=== PATIENT | male | born 1955 | race African-American/Black ===

== ENCOUNTER 2017-11-17 09:45 | Emergency (ER) | payer OTHER, MEDICARE ==
--- NOTE | 2017-11-17 10:01 | ER Document Report ---
ED Medical Screen (RME) - General Chief Complaint: Abnormal Lab Results Stated Complaint: HIP PAIN Time Seen by Provider: 11/17/17 09:55 Mode of Arrival: Ambulatory Information source: Patient Notes: 62-year-old male presents with concerns of low blood count, patient was called by his primary care physician to come in for a red blood cell count of 3.6. pt notes he has not felt well for 1.5 years since his hip replacement. Pt has nosebleeds once a week, denies any aspirin or blood thinner use I have greeted and performed a rapid initial assessment of this patient. A comprehensive ED assessment and evaluation of the patient, analysis of test results and completion of the medical decision making process will be conducted by additional ED providers. PHYSICAL EXAMINATION: GENERAL: Well-appearing, well-nourished and in no acute distress. HEAD: Atraumatic, normocephalic. EYES: Pupils equal round extraocular movements intact, conjunctiva are normal. ENT: Nares patent NECK: Normal range of motion LUNGS: No respiratory distress Musculoskeletal: Normal range of motion NEUROLOGICAL: Normal speech, normal gait. PSYCH: Normal mood, normal affect. SKIN: Warm, Dry, normal turgor, no rashes or lesions noted. TRAVEL OUTSIDE OF THE [place] IN LAST 30 DAYS: No - Related Data Allergies/Adverse Reactions: Penicillins Allergy (Verified 11/17/17 09:49) Past Medical History - Past Medical History Cardiac Medical History: Reports: Hx Hypertension Renal/ Medical History: Denies: Hx Peritoneal Dialysis Psychiatric Medical History: Reports: Hx Depression Past Surgical History: Reports: Hx Orthopedic Surgery Physical Exam - Vital signs Vitals: Temp Pulse Resp BP Pulse Ox 98 F 96 17 125/63 99 11/17/17 09:53 11/17/17 09:53 11/17/17 09:53 11/17/17 09:53 11/17/17 09:53 Course - Vital Signs Vital signs: Temp Pulse Resp BP Pulse Ox 98 F 96 17 125/63 99 11/17/17 09:53 11/17/17 09:53 11/17/17 09:53 11/17/17 09:53 11/17/17 09:53
[2017-11-17 10:30] LABS: ABSOLUTE BASOPHILS # (AUTO) 0.1 10^3/uL (0.0-0.2); ABSOLUTE EOSINOPHILS # (AUTO) 0.1 10^3/uL (0.0-0.6); ABSOLUTE LYMPHOCYTES (AUTO) 1.6 10^3/uL (0.5-4.7); ABSOLUTE MONOCYTES (AUTO) 0.7 10^3/uL (0.1-1.4); ABSOLUTE NEUT (AUTO) 4.6 10^3/uL (1.7-8.2); BASOPHILS % (AUTO) 1.5 % (0-2); EOSINOPHILS % (AUTO) 1.8 % (0-6); HEMATOCRIT 24.5 % (37.9-51.0); MEAN CORPUSCULAR HEMOGLOBIN 16.8 pg (27.0-33.4); MEAN CORPUSCULAR HGB CONC 27.2 g/dL (32.0-36.0); MONOCYTES % (AUTO) 10.2 % (3-13); PLATELET COUNT 602 10^3/uL (150-450); RED BLOOD COUNT 3.99 10^6/uL (4.35-5.55); RED CELL DISTRIBUTION WIDTH 22.7 % (11.5-14.0); SEGMENTED NEUTROPHILS % (AUTO) 64.5 % (42-78); TOTAL CELLS COUNTED % (AUTO) 100 %; WHITE BLOOD COUNT 7.1 10^3/uL (4.0-10.5)
[2017-11-17 10:42] LABS: ALANINE AMINOTRANSFERASE 19 U/L (21-72); ALBUMIN 4.2 g/dL (3.5-5.0); ALKALINE PHOSPHATASE 76 U/L (38-126); ANION GAP 12 (5-19); ASPARTATE AMINO TRANSFERASE 21 U/L (17-59); BILIRUBIN,DIRECT 0.1 mg/dL (0.0-0.4); BILIRUBIN,TOTAL 0.4 mg/dL (0.2-1.3); BLOOD UREA NITROGEN 11 mg/dL (7-20); CALCIUM 9.9 mg/dL (8.4-10.2); CARBON DIOXIDE 25 mmol/L (22-30); CHLORIDE 104 mmol/L (98-107); GLUCOSE 88 mg/dL (75-110); POTASSIUM 4.4 mmol/L (3.6-5.0); SODIUM 141.2 mmol/L (137-145); TOTAL PROTEIN 7.4 g/dL (6.3-8.2)
[2017-11-17 10:44] LABS: MEAN CORPUSCULAR VOLUME 62 fl (80-97)
[2017-11-17 11:03] LABS: HEMOGLOBIN 6.7 g/dL (13.5-17.0)
[2017-11-17 11:08] LABS: ANISOCYTOSIS 2+; HYPOCHROMASIA 3+; OVALOCYTES 1+; PLATELET COMMENT INCREASED; POIKILOCYTOSIS 1+; POLYCHROMASIA SLIGHT; TARGET CELLS SLIGHT; TEAR DROP CELLS 1+
[2017-11-17] MEDS ORDERED: NORMAL SALINE 250 ML IV PRN (11:22)
[2017-11-17] MEDS ORDERED: ALBUTEROL SULFATE 0.083% NEB 2.5 MG/3 ML AMPUL NEB ONE (11:22)
--- NOTE | 2017-11-17 12:35 | RADIOLOGY REPORT (SQ) ---
EXAM DESCRIPTION: CHEST PA/LAT COMPLETED DATE/TIME: 11/17/2017 12:21 pm REASON FOR STUDY: cough, asthma COMPARISON: None. EXAM PARAMETERS: NUMBER OF VIEWS: two views TECHNIQUE: Digital Frontal and Lateral radiographic views of the chest acquired. RADIATION DOSE: NA LIMITATIONS: none FINDINGS: LUNGS AND PLEURA: Focal bandlike airspace disease in the lingula, scarring versus atelecta sis versus pneumonia. Remainder of the lungs are well inflated and clear. No pleural effusion. No pneumothorax. MEDIASTINUM AND HILAR STRUCTURES: No masses or contour abnormalities. HEART AND VASCULAR STRUCTURES: Heart normal size. No evidence for failure. BONES: No acute findings. HARDWARE: None in the chest. OTHER: No other significant finding. IMPRESSION: Bandlike airspace disease in the lingula, atelectasis versus pneumonia versus scarring. TECHNICAL DOCUMENTATION: JOB ID: [id number] [employer]- All Rights Reserved
[2017-11-17] MEDS ORDERED: AZITHROMYCIN 250 MG TABLET PO ONE (13:12)
[2017-11-17] MEDS ORDERED: HYDROCODONE/ACETAMINOPHEN 5-325 MG TABLET PO ONE (14:53)
--- NOTE | 2017-11-17 17:57 | ER Document Report ---
ED General - General Chief Complaint: Abnormal Lab Results Stated Complaint: HIP PAIN Time Seen by Provider: 11/17/17 09:55 Mode of Arrival: Ambulatory Information source: Patient Notes: Patient is a 62-year-old male who presents to the ER today after being called by his primary care provider, the [facility], who did blood work recently and just got it back showing that he had a low blood count. Patient has never had to have a transfusion for low blood levels before. He denies any bleeding from anywhere or dark stools. He states he has been told before that he had some low blood levels but never to the point of transfusion. He also complains of cough over the past 3 weeks that has worsened. Patient does have COPD but states that he does not usually cough like this. He does not know if he has had any fever but denies any chills, admits to his normal amount of shortness of breath and wheezing. TRAVEL OUTSIDE OF THE [place] IN LAST 30 DAYS: No - Related Data Allergies/Adverse Reactions: Penicillins Allergy (Verified 11/17/17 09:49) Past Medical History - General Information source: Patient - Social History Smoking Status: Unknown if Ever Smoked Family History: Reviewed & Not Pertinent Patient has suicidal ideation: No Patient has homicidal ideation: No - Past Medical History Cardiac Medical History: Reports: Hx Hypercholesterolemia, Hx Hypertension Renal/ Medical History: Denies: Hx Peritoneal Dialysis Psychiatric Medical History: Reports: Hx Depression Past Surgical History: Reports: Hx Orthopedic Surgery - left thr Review of Systems - Review of Systems Constitutional: No symptoms reported EENT: No symptoms reported Cardiovascular: No symptoms reported Respiratory: See HPI Gastrointestinal: No symptoms reported Genitourinary: No symptoms reported Male Genitourinary: No symptoms reported Musculoskeletal: No symptoms reported Skin: No symptoms reported Hematologic/Lymphatic: No symptoms reported Neurological/Psychological: No symptoms reported Physical Exam - Vital signs Vitals: Temp Pulse Resp BP Pulse Ox 98 F 96 17 125/63 99 11/17/17 09:53 11/17/17 09:53 11/17/17 09:53 11/17/17 09:53 11/17/17 09:53 - Notes Notes: PHYSICAL EXAMINATION: GENERAL: Well-appearing and in no acute distress. HEAD: Atraumatic, normocephalic. EYES: Pupils equal round and reactive to light, extraocular movements intact, sclera anicteric, conjunctiva are normal. ENT: ear canals without erythema or foreign body, TMs pearly yepez with good bony landmarks, nares patent, oropharynx clear without exudates. Moist mucous membranes. NECK: Normal range of motion, supple without lymphadenopathy LUNGS:cough but otherwise, CTAB and equal. No wheezes rales or rhonchi. HEART: Regular rate and rhythm without murmurs ABDOMEN: Soft, no tenderness. No guarding, no rebound BACK: no vertebral tenderness, normal ROM GI/: no CVA tenderness EXTREMITIES: Normal range of motion, no pitting edema. No cyanosis. NEUROLOGICAL: Cranial nerves grossly intact. Normal sensory/motor exams. PSYCH: Normal mood, normal affect. SKIN: Warm, Dry, normal turgor, no rashes or lesions noted Course - Re-evaluation Re-evalutation: 11/17/17 18:25 Patient's hemoglobin is 6.7. Other lab work is unremarkable today. Chest x- ray does report a possible pneumonia in the lingula. Patient was given breathing treatment, 2 units of blood here in the emergency department. He refuses admission at this time. Patient clinically looks well. He also had a complaint of some chronic hip pain after we talked and I evaluated him, however he is nontender to the hip or back and this is chronic for many years. No new injury. Patient states that his diclofenac does not help him and would like to know if he can try something new. - Vital Signs Vital signs: Temp Pulse Resp BP Pulse Ox 98.4 F 96 22 H 129/89 H 99 11/17/17 17:35 11/17/17 09:53 11/17/17 18:16 11/17/17 18:16 11/17/17 18:16 - Laboratory Result Diagrams: 11/17/17 10:10 11/17/17 10:10 Laboratory results interpreted by me: 11/17/17 11/17/17 11/17/17 10:10 10:10 13:24 RBC 3.99 L Hgb 6.7 L Hct 24.5 L MCV 62 L MCH 16.8 L MCHC 27.2 L RDW 22.7 H Plt Count 602 H ALT 19 L Crossmatch See Detail Discharge - Discharge Clinical Impression: Anemia requiring transfusions Pneumonia Qualifiers: Pneumonia type: due to unspecified organism Laterality: unspecified laterality Lung location: unspecified part of lung Qualified Code(s): J18.9 - Pneumonia, unspecified organism Condition: Stable Disposition: HOME, SELF-CARE Additional Instructions: Return immediately for any new or worsening symptoms. Follow up with primary care provider, call tomorrow to make followup appointment. Prescriptions: RX: Azithromycin [Zithromax 250 mg Tablet] 250 mg PO ASDIR PRN #6 tablet PRN Reason: D-Methorphan Hb/Prometh HCl [Promethazine-Dm Syrup] 5 ml PO Q8 PRN #120 ml PRN Reason: RX: Ferrous Sulfate 325 mg PO DAILY #30 tablet Meloxicam [Mobic] 15 mg PO DAILY #30 tablet
[2017-11-17 20:43] VITALS: BP 130/81
[2017-11-18 10:14] LABS: PATH REVIEW PATHOLOGIST REVIEWED
== END 2017-11-17 20:42 | disposition home or self-care (01) ==
LOC: ER 09:45
DX: D64.9 Anemia, unspecified (principal); J18.9 Pneumonia, unspecified organism; E78.00 Pure hypercholesterolemia, unspecified; I10 Essential (primary) hypertension; Z88.0 Allergy status to penicillin
CPT/HCPCS: 94640; 99284; 86900; 86901; 36415; 36430; 86850; 85025; 80053; 86920; 71046; P9016

== ENCOUNTER 2018-09-08 10:19 | Inpatient (IN) | payer OTHER, MEDICARE ==
[2018-09-08] MEDS ORDERED: IPRATROPIUM/ALBUTEROL 0.5-2.5 MG/3 ML AMPUL NEB ONE (10:38)
[2018-09-08] MEDS ORDERED: METHYLPREDNISOLONE INJ 125 MG/2 ML SDV IV ONE (10:38)
--- NOTE | 2018-09-08 10:41 | ER Document Report ---
ED General - General Chief Complaint: Shortness Of Breath Stated Complaint: SHORTNESS OF BREATH Time Seen by Provider: 09/08/18 10:34 Notes: Patient is a 63-year-old male with history of asthma and hypertension that presents to the emergency department for chief complaint of cough and shortness of breath. Patient states been having a cough and feeling short of breath the last few days, but it got worse today, he has significant dyspnea on exertion, could barely get up from the couch to walk to the front door without having to take a break and sit down to catch his breath. Had a cough with a productive white sputum. He denies having any chest pain associated, denies any recent fevers, chills, night sweats, nausea, vomiting or abdominal pain. He states he had pneumonia last year and this feels similar to that. Past Medical History: Asthma, hyperlipidemia, hypertension, chronic anemia, depression Past Surgical History: Hernia repair x3, total hip arthroplasty Social History: Admits to smoking cigarettes, denies alcohol or drug use. Family History: Reviewed and noncontributory for presenting illness Allergies: Reviewed, see documented allergy list. REVIEW OF SYSTEMS: Other than noted above, the 12 point review of systems was reviewed with the patient and were negative, all pertinent findings are included in the HPI. PHYSICAL EXAMINATION: Vital signs reviewed, nursing noted reviewed. GENERAL: Elderly male, mild crease work of breathing on exam, mild respiratory distress. HEAD: Atraumatic, normocephalic. EYES: Eyes appear normal, extraocular movements intact, sclera anicteric, conjunctiva are normal. ENT: nares patent, oropharynx clear without exudates. Moist mucous membranes. NECK: Normal range of motion, supple without lymphadenopathy LUNGS: Mild increased work of breathing, diffuse expiratory wheezing noted throughout all lung grey. HEART: Regular rate and rhythm without murmurs ABDOMEN: Soft, nontender, normoactive bowel sounds. No rebound, guarding, or rigidity. No masses appreciated. EXTREMITIES: Nontender, good range of motion, no pitting or edema. NEUROLOGICAL: No focal neurological deficits. Moves all extremities spontaneously Motor and sensory grossly intact on exam. PSYCH: Normal mood, normal affect. SKIN: Warm, Dry, normal turgor, no rashes or lesions noted on exposed skin TRAVEL OUTSIDE OF THE [place] IN LAST 30 DAYS: No - Related Data Allergies/Adverse Reactions: Penicillins Allergy (Verified 09/08/18 10:20) Past Medical History - Social History Smoking Status: Current Every Day Smoker Family History: Reviewed & Not Pertinent - Past Medical History Cardiac Medical History: Reports: Hx Hypercholesterolemia, Hx Hypertension Renal/ Medical History: Denies: Hx Peritoneal Dialysis Psychiatric Medical History: Reports: Hx Depression Past Surgical History: Reports: Hx Orthopedic Surgery - left thr Physical Exam - Vital signs Vitals: Temp Pulse Resp BP Pulse Ox 98.7 F 93 18 134/72 H 83 L 09/08/18 10:23 09/08/18 10:23 09/08/18 10:23 09/08/18 10:23 09/08/18 10:23 Course - Re-evaluation Re-evalutation: Patient seen and examined vital signs reviewed. Laboratory data and imaging were ordered as appropriate for the patient's presenting symptoms and complaint, with consideration of any critical or life threatening conditions that may be associated with their obtained history and exam as noted above. Patient was treated with, supplemental oxygen and DuoNeb breathing treatments x3 , given IV Solu-Medrol, patient was noted to be hypoxic at 83% on room air, he is not normally on home oxygen. Results were reviewed when available and demonstrated no leukocytosis, noted to be anemic, but improved from prior, he does have a history of chronic anemia. The patient was re-evaluated and was improved, but still having significant wheezing on his exam Evaluation was most consistent with acute severe exacerbation of asthma, with hypoxia Results were discussed with the patient at this point after careful consideration I feel that that patient should be admitted to the hospital. This was discussed with the patient that it is in the best interest for their care to be admitted for further evaluation and management. Patient agreed with this plan of care. A call was placed to the admitted physician, Dr. Flores who graciously accepted the patient onto their service. *Note is created using voice recognition software and may contain spelling, syntax or grammatical errors. Laboratory 09/08/18 09/08/18 09/08/18 10:47 10:47 10:47 WBC 6.1 RBC 4.34 L Hgb 9.6 L Hct 31.3 L MCV 72 L MCH 22.2 L MCHC 30.7 L RDW 23.2 H Plt Count 461 H Seg Neutrophils % 66.4 Lymphocytes % 20.3 Monocytes % 8.4 Eosinophils % 2.9 Basophils % 2.0 Absolute Neutrophils 4.0 Absolute Lymphocytes 1.2 Absolute Monocytes 0.5 Absolute Eosinophils 0.2 Absolute Basophils 0.1 Carbonic Acid HCO3/H2CO3 Ratio ABG pH ABG pCO2 ABG pO2 ABG HCO3 ABG Total CO2 ABG O2 Saturation ABG Base Excess FiO2 Sodium 144.4 Potassium 4.0 Chloride 103 Carbon Dioxide 28 Anion Gap 13 BUN 7 Creatinine 0.76 Est GFR ( Amer) > 60 Est GFR (Non-Af Amer) > 60 Glucose 109 Calcium 10.2 Total Bilirubin 0.5 Direct Bilirubin 0.2 Neonat Total Bilirubin Not Reportable Neonat Direct Bilirubin Not Reportable Neonat Indirect Bili Not Reportable AST 22 ALT 16 L Alkaline Phosphatase 73 Troponin I < 0.012 Total Protein 8.2 Albumin 4.2 09/08/18 09/08/18 09/08/18 13:03 13:32 13:58 WBC RBC Hgb Hct MCV MCH MCHC RDW Plt Count Seg Neutrophils % Lymphocytes % Monocytes % Eosinophils % Basophils % Absolute Neutrophils Absolute Lymphocytes Absolute Monocytes Absolute Eosinophils Absolute Basophils Carbonic Acid Cancelled 1.34 HCO3/H2CO3 Ratio Cancelled 20:1 ABG pH Cancelled 7.41 ABG pCO2 Cancelled 44.6 ABG pO2 Cancelled 67.5 L ABG HCO3 Cancelled 27.6 H ABG Total CO2 Cancelled 28.9 H ABG O2 Saturation Cancelled 93.5 L ABG Base Excess Cancelled 2.5 FiO2 Cancelled 28% Sodium Potassium Chloride Carbon Dioxide Anion Gap BUN Creatinine Est GFR ( Amer) Est GFR (Non-Af Amer) Glucose Calcium Total Bilirubin Direct Bilirubin Neonat Total Bilirubin Neonat Direct Bilirubin Neonat Indirect Bili AST ALT Alkaline Phosphatase Troponin I < 0.012 Total Protein Albumin 09/08/18 09/09/18 09/09/18 18:55 01:07 05:35 WBC 8.0 RBC 4.43 Hgb 9.7 L Hct 31.5 L MCV 71 L MCH 21.8 L MCHC 30.6 L RDW 23.4 H Plt Count 427 Seg Neutrophils % Lymphocytes % Monocytes % Eosinophils % Basophils % Absolute Neutrophils Absolute Lymphocytes Absolute Monocytes Absolute Eosinophils Absolute Basophils Carbonic Acid HCO3/H2CO3 Ratio ABG pH ABG pCO2 ABG pO2 ABG HCO3 ABG Total CO2 ABG O2 Saturation ABG Base Excess FiO2 Sodium Potassium Chloride Carbon Dioxide Anion Gap BUN Creatinine Est GFR ( Amer) Est GFR (Non-Af Amer) Glucose Calcium Total Bilirubin Direct Bilirubin Neonat Total Bilirubin Neonat Direct Bilirubin Neonat Indirect Bili AST ALT Alkaline Phosphatase Troponin I < 0.012 < 0.012 Total Protein Albumin 09/09/18 05:35 WBC RBC Hgb Hct MCV MCH MCHC RDW Plt Count Seg Neutrophils % Lymphocytes % Monocytes % Eosinophils % Basophils % Absolute Neutrophils Absolute Lymphocytes Absolute Monocytes Absolute Eosinophils Absolute Basophils Carbonic Acid HCO3/H2CO3 Ratio ABG pH ABG pCO2 ABG pO2 ABG HCO3 ABG Total CO2 ABG O2 Saturation ABG Base Excess FiO2 Sodium 137.2 Potassium 4.5 Chloride 101 Carbon Dioxide 25 Anion Gap 11 BUN 13 Creatinine 0.76 Est GFR ( Amer) > 60 Est GFR (Non-Af Amer) > 60 Glucose 154 H Calcium 10.6 H Total Bilirubin Direct Bilirubin Neonat Total Bilirubin Neonat Direct Bilirubin Neonat Indirect Bili AST ALT Alkaline Phosphatase Troponin I Total Protein Albumin Chest X-Ray 09/08/18 10:38 IMPRESSION: NO ACUTE RADIOGRAPHIC FINDING IN THE CHEST. - Vital Signs Vital signs: Temp Pulse Resp BP Pulse Ox 97.9 F 81 18 152/76 H 95 09/09/18 07:30 09/09/18 07:30 09/09/18 07:30 09/09/18 07:30 09/09/18 07:30 - Laboratory Result Diagrams: 09/09/18 05:35 09/09/18 05:35 Laboratory results interpreted by me: 09/08/18 09/08/18 10:47 10:47 RBC 4.34 L Hgb 9.6 L Hct 31.3 L MCV 72 L MCH 22.2 L MCHC 30.7 L RDW 23.2 H Plt Count 461 H ALT 16 L - EKG Interpretation by Me Additional EKG results interpreted by me: EKG demonstrates sinus rhythm with a ventricular rate of 82 bpm, normal axis, QTC 450 ms, no evidence of acute ischemia on this EKG, no prior for comparison. Critical Care Note - Critical Care Note Total time excluding time spent on procedures (mins): 40 Comments: Critical care time 40 minutes exclusive from separate billable procedures for a patient requiring complex medical decision making, and high potential for clinical deterioration. In a patient presenting with severe hypoxia, requiring immediate intervention. Time spent obtaining history from patient or surrogate, discussions with consultants, development of treatment plan with patient or surrogate, evaluation of patient's response to treatment, examination of patient , ordering and performing treatments and interventions, ordering and review of laboratory studies, re-evaluation of patient's condition, ordering and review of radiographic studies and review of old charts Discharge - Discharge Clinical Impression: Acute severe exacerbation of asthma, Hypoxia Anemia Qualifiers: Anemia type: unspecified type Qualified Code(s): D64.9 - Anemia, unspecified Condition: Good Disposition: ADMITTED INPATIENT Admitting Provider: Hospitalist - Dr. Flores Unit Admitted: [facility]
[2018-09-08 11:01] LABS: ABSOLUTE BASOPHILS # (AUTO) 0.1 10^3/uL (0.0-0.2); ABSOLUTE EOSINOPHILS # (AUTO) 0.2 10^3/uL (0.0-0.6); ABSOLUTE LYMPHOCYTES (AUTO) 1.2 10^3/uL (0.5-4.7); ABSOLUTE MONOCYTES (AUTO) 0.5 10^3/uL (0.1-1.4); EOSINOPHILS % (AUTO) 2.9 % (0-6); HEMATOCRIT 31.3 % (37.9-51.0); HEMOGLOBIN 9.6 g/dL (13.5-17.0); LYMPHOCYTES % (AUTO) 20.3 % (13-45); MEAN CORPUSCULAR HEMOGLOBIN 22.2 pg (27.0-33.4); MEAN CORPUSCULAR HGB CONC 30.7 g/dL (32.0-36.0); MEAN CORPUSCULAR VOLUME 72 fl (80-97); MONOCYTES % (AUTO) 8.4 % (3-13); PLATELET COUNT 461 10^3/uL (150-450); RED BLOOD COUNT 4.34 10^6/uL (4.35-5.55); RED CELL DISTRIBUTION WIDTH 23.2 % (11.5-14.0); SEGMENTED NEUTROPHILS % (AUTO) 66.4 % (42-78); TOTAL CELLS COUNTED % (AUTO) 100 %; WHITE BLOOD COUNT 6.1 10^3/uL (4.0-10.5)
[2018-09-08 11:27] LABS: ALANINE AMINOTRANSFERASE 16 U/L (21-72); ALBUMIN 4.2 g/dL (3.5-5.0); ALKALINE PHOSPHATASE 73 U/L (38-126); ANION GAP 13 (5-19); ASPARTATE AMINO TRANSFERASE 22 U/L (17-59); BILIRUBIN,DIRECT 0.2 mg/dL (0.0-0.4); BILIRUBIN,TOTAL 0.5 mg/dL (0.2-1.3); BLOOD UREA NITROGEN 7 mg/dL (7-20); CALCIUM 10.2 mg/dL (8.4-10.2); CARBON DIOXIDE 28 mmol/L (22-30); CHLORIDE 103 mmol/L (98-107); GLUCOSE 109 mg/dL (75-110); SODIUM 144.4 mmol/L (137-145); TOTAL PROTEIN 8.2 g/dL (6.3-8.2)
--- NOTE | 2018-09-08 11:50 | RADIOLOGY REPORT (SQ) ---
EXAM DESCRIPTION: CHEST SINGLE VIEW COMPLETED DATE/TIME: 09/08/2018 11:22 am REASON FOR STUDY: hypoxia, shortness of breath COMPARISON: 11/18/2017 EXAM PARAMETERS: NUMBER OF VIEWS: One view. TECHNIQUE: Single frontal radiographic view of the chest acquired. RADIATION DOSE: NA LIMITATIONS: None. FINDINGS: LUNGS AND PLEURA: No opacities, masses or pneumothorax. No pleural effusion. Resolution o f the previously noted lingular infiltrate. MEDIASTINUM AND HILAR STRUCTURES: No masses. Contour normal. HEART AND VASCULAR STRUCTURES: Heart normal in size. Normal vasculature. BONES: No acute findings. HARDWARE: None in the chest. OTHER: No other significant finding. IMPRESSION: NO ACUTE RADIOGRAPHIC FINDING IN THE CHEST. TECHNICAL DOCUMENTATION: JOB ID: [id number] [employer]- All Rights Reserved Reading location - IP/workstation name: [email or web address]
[2018-09-08] MEDS ORDERED: ACETAMINOPHEN 325 MG TABLET PO PRN (12:46)
[2018-09-08] MEDS ORDERED: ONDANSETRON HCL INJ/PF 4 MG/2 ML SDV IV PRN (12:46)
[2018-09-08] MEDS ORDERED: ALBUTEROL SULFATE 0.083% NEB 2.5 MG/3 ML AMPUL NEB PRN (12:46)
[2018-09-08] MEDS ORDERED: OXYCODONE HCL IR 5 MG TABLET PO PRN (12:55)
[2018-09-08] MEDS ORDERED: TRIAMCINOLONE ACETONIDE 0.1% CREAM 15 GM TOP SCH (13:00)
--- NOTE | 2018-09-08 13:27 | PDOC H&P ---
History of Present Illness Admission Date/PCP: 09/08/18 12:25 [facility] Patient complains of: Difficulty breathing 1 week History of Present Illness: KWABENA OJEDA is a 63 year old man who has a long-standing history of asthma. He states that he has been coming more more short of breath over the past week. He started with a dry cough and now he is starting to produce some whitish phlegm. He, when he was unable to walk across the room without being extremely short of breath, decided to come into the ER for evaluation. He has had "cold sweats", no documented fever. No chest pain. No pleuritic chest pain. No nausea vomiting constipation or diarrhea. No urinary difficulty. No confusion or altered mental status. Past Medical History Cardiac Medical History: Reports: Hyperlipidema, Hypertension Pulmonary Medical History: Reports: Asthma EENT Medical History: Reports: Ears - Hard of hearing Neurological Medical History: Denies: Hemorrhagic CVA, Ischemic CVA Endocrine Medical History: Denies: Diabetes Mellitus Type 2 Renal/ Medical History: Denies: Chronic Kidney Disease Malignancy Medical History: Denies: None GI Medical History: Denies: Cirrhosis, Gastroesophageal Reflux Disease Musculoskeltal Medical History: Reports: Arthritis Skin Medical History: Denies: Eczema, Psoriasis Psychiatric Medical History: Reports: Tobacco Dependency Denies: Alcohol Dependency Traumatic Medical History: Reports: None Hematology: Reports: None Infectious Medical History: Reports: None Past Surgical History Past Surgical History: Reports: Herniorrhaphy, Hip Replacement, Orthopedic Surgery - left thr, Other - 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 Social History Information Source: Patient, Relative Lives with: Family Smoking Status: Current Every Day Smoker Cigarettes Packs Per Day: 0.5 Number of Years Smokin Frequency of Alcohol Use: Social Last Alcohol Use: 09/06/18 Past Social History Note: Patient joined the [employer] when he was a young man, he is a [place] , no active duty in [place]. [place] in [place] [employer] for years. 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 He worked for the [employer]. He has been unemployed since 2009. He lives with his oldest daughter and her children. - Advance Directive Resuscitation Status: Full Code Surrogate healthcare decision maker:: Eldest daughter Tess Taylor, phone [phone], Ramandeep Noble is second [facility] surrogate Family History Family History: Reviewed & Not Pertinent Parental Family History Reviewed: Yes Children Family History Reviewed: Yes Sibling(s) Family History Reviewed.: Yes Medication/Allergy Allergies/Adverse Reactions: Penicillins Allergy (Verified 09/08/18 10:20) Review of Systems Constitutional: PRESENT: chills, night sweats. ABSENT: headache(s), weight gain Eyes: ABSENT: visual disturbances Ears: PRESENT: hearing changes Nose, Mouth, and Throat: ABSENT: headache(s), mouth pain Cardiovascular: PRESENT: dyspnea on exertion. ABSENT: chest pain, edema, orthropnea, palpitations Respiratory: PRESENT: cough, dyspnea, sputum. ABSENT: hemoptysis Gastrointestinal: PRESENT: constipation, diarrhea. ABSENT: nausea, vomiting Genitourinary: ABSENT: difficulty urinating, dysuria Musculoskeletal: PRESENT: back pain, joint swelling Integumentary: PRESENT: lesions, pruritus Neurological: ABSENT: abnormal movements, abnormal speech, confusion, dizziness , frequent falls, syncope Psychiatric: ABSENT: anxiety, depression Endocrine: ABSENT: cold intolerance, heat intolerance Allergic/Immunologic: ABSENT: seasonal rhinorrhea Physical Exam Vital Signs: Temp Pulse Resp BP Pulse Ox 97.6 F 93 18 143/86 H 96 09/08/18 11:09 09/08/18 10:23 09/08/18 11:01 09/08/18 11:01 09/08/18 11:01 General appearance: PRESENT: no acute distress, well-developed, well-nourished Head exam: PRESENT: atraumatic, normocephalic Eye exam: ABSENT: conjunctival injection, scleral icterus Mouth exam: PRESENT: moist, neck supple, tongue midline Neck exam: ABSENT: lymphadenopathy, tenderness Respiratory exam: PRESENT: decreased breath sounds, unlabored, wheezes. ABSENT : accessory muscle use, rales, rhonchi Cardiovascular exam: PRESENT: RRR. ABSENT: systolic murmur Pulses: PRESENT: normal radial pulses, normal dorsalis pedis pul GI/Abdominal exam: PRESENT: diminished bowel sounds, soft. ABSENT: distended, firm, guarding, tenderness Rectal exam: PRESENT: deferred Gentrourinary exam: ABSENT: indwelling catheter Extremities exam: ABSENT: calf tenderness, pedal edema Musculoskeletal exam: ABSENT: full ROM Neurological exam: PRESENT: alert, awake, oriented to person, oriented to place , oriented to situation, CN II-XII grossly intact Psychiatric exam: PRESENT: appropriate affect. ABSENT: anxious Skin exam: PRESENT: dry, intact, warm, other - slighlty raised darkended lesions over right shoulder and anteriorly and posteriorly from the shulder, crosses midline, itchy and no pain. Results Impressions: Chest X-Ray 09/08/18 10:38 IMPRESSION: NO ACUTE RADIOGRAPHIC FINDING IN THE CHEST. Assessment & Plan - Diagnosis (1) Acute severe exacerbation of asthma Is this a current diagnosis for this admission?: Yes Plan: Patient has had asthma for many years. He has been developing signs and symptoms of an upper respiratory tract infection and I believe he has bronchitis , along with this he has an asthma exacerbation. He received Solu-Medrol and duo nebs in the ER and had an acute hypoxemic respiratory failure with oxygen level in the 70s on room air. He does not use oxygen at home. We have been unable to keep his oxygen saturation greater than 90% and so he is admitted to the hospital for treatment. We will continue with Solu-Medrol 125 mg IV every 12 hours, DuoNeb's every 6 hours with as needed albuterol. I will also start him on Levaquin for bronchitis. (2) Acute hypoxemic respiratory failure Is this a current diagnosis for this admission?: Yes Plan: Patient does not use oxygen at baseline. He had a room air sat in the 70s on admission. We have not been able to keep his sats greater than 90% and so he is admitted to the hospital. Right now he is using 2 L of nasal cannula oxygen and we will monitor oxygenation and titrate oxygen off as we are able as he is receiving his asthma treatment as noted above. (3) Chronic bilateral low back pain Is this a current diagnosis for this admission?: Yes Plan: Patient uses intermittent oxycodone for this. I prescribed oxycodone 5 mg p.o. every 6 hours as needed 3-5 pain. I have prescribed Tylenol for milder 1-3 pain. (4) Insomnia Is this a current diagnosis for this admission?: Yes Plan: Severe insomnia at home. He does not know why it has not really discussed with his doctor. He does not take anything at home. I have ordered trazodone 50 mg p.o. nightly as needed insomnia. (5) Abnormal EKG Is this a current diagnosis for this admission?: Yes Plan: Patient has been chest pain-free. He has a flipped T wave in V2. Will reorder EKG in the morning and will trend troponin x3. (6) HTN (hypertension) Is this a current diagnosis for this admission?: Yes Plan: Patient takes amlodipine and hydrochlorothiazide at home, doses unknown. Will start low doses of these medications and follow blood pressure until we know what his doses are or it is he needs to be up titrated. (7) HLD (hyperlipidemia) Is this a current diagnosis for this admission?: Yes Plan: We will start his atorvastatin, dose unknown at this point so I am starting him on atorvastatin 20 mg (8) Rash Is this a current diagnosis for this admission?: Yes Plan: Over the right shoulder and radiating both anteriorly and posteriorly, crossing the midline so I do not think it shingles. He states that there were never vesicles. It has not been painful but is itchy. It could be a fungal infection and I will start with nystatin topical and observe response. - Time Time Spent: 50 to 70 Minutes Medications reviewed and adjusted accordingly: Yes Anticipated discharge: Home Within: within 48 hours - Inpatient Certification Based on my medical assessment, after consideration of the patient's comorbidities, presenting symptoms, or acuity I expect that the services needed warrant INPATIENT care.: Yes I certify that my determination is in accordance with my understanding of Medicare's requirements for reasonable and necessary INPATIENT services [42 CFR 412.3e].: Yes Medical Necessity: Failure to Improve With Outpatient Therapy, Need for Nebulizer Therapy and Monitoring of Response, Risk of Complication if Not Cared For in Hospital
[2018-09-08] MEDS: IPRATROPIUM/ALBUTEROL 0.5-2.5 MG/3 ML AMPUL NEB SCH ×2 (13:52→20:29)
[2018-09-08 14:25] LABS: ARTERIAL BLOOD BASE EXCESS 2.5 mmol/L; ARTERIAL BLOOD H2CO3 1.34 mmol/L (1.05-1.35); ARTERIAL BLOOD HCO3 27.6 mmol/L (20-24); ARTERIAL BLOOD O2 SATURATION 93.5 % (94-98); ARTERIAL BLOOD PCO2 44.6 mmHg (35-45); ARTERIAL BLOOD PH 7.41 (7.35-7.45); ARTERIAL BLOOD PO2 67.5 mmHg (80-100); ARTERIAL BLOOD TOTAL CO2 28.9 mmol/L (23-27)
[2018-09-08 14:27] LABS: ARTERIAL BLOOD FIO2 28%
[2018-09-08] MEDS: LEVOFLOXACIN 750 MG TABLET PO SCH (16:55)
[2018-09-08] MEDS: LANSOPRAZOLE 15 MG TAB.RAP.DR PO SCH (16:57)
[2018-09-08] MEDS: NYSTATIN CREAM 15 GM TP SCH (19:18)
[2018-09-08] MEDS: TRAZODONE HCL 50 MG TABLET PO PRN (21:24)
[2018-09-08] MEDS: ATORVASTATIN CALCIUM 20 MG TABLET PO SCH (21:24)
[2018-09-08] MEDS: METHYLPREDNISOLONE INJ 125 MG/2 ML SDV IV SCH (21:24)
[2018-09-09] MEDS: IPRATROPIUM/ALBUTEROL 0.5-2.5 MG/3 ML AMPUL NEB SCH ×4 (02:41→20:23)
[2018-09-09] MEDS: LANSOPRAZOLE 15 MG TAB.RAP.DR PO SCH ×2 (05:58→17:43)
[2018-09-09 06:33] LABS: HEMATOCRIT 31.5 % (37.9-51.0); HEMOGLOBIN 9.7 g/dL (13.5-17.0); MEAN CORPUSCULAR HEMOGLOBIN 21.8 pg (27.0-33.4); MEAN CORPUSCULAR HGB CONC 30.6 g/dL (32.0-36.0); MEAN CORPUSCULAR VOLUME 71 fl (80-97); PLATELET COUNT 427 10^3/uL (150-450); RED BLOOD COUNT 4.43 10^6/uL (4.35-5.55); RED CELL DISTRIBUTION WIDTH 23.4 % (11.5-14.0)
[2018-09-09 06:48] LABS: ANION GAP 11 (5-19); BLOOD UREA NITROGEN 13 mg/dL (7-20); CALCIUM 10.6 mg/dL (8.4-10.2); CARBON DIOXIDE 25 mmol/L (22-30); CHLORIDE 101 mmol/L (98-107); GLUCOSE 154 mg/dL (75-110); POTASSIUM 4.5 mmol/L (3.6-5.0); SODIUM 137.2 mmol/L (137-145)
--- NOTE | 2018-09-09 07:46 | EKG REPORT ---
SEVERITY:- NORMAL ECG - SINUS RHYTHM : Confirmed by: Belinda Naranjo MD 09-Sep-2018 07:45:33
--- NOTE | 2018-09-09 07:46 | EKG REPORT ---
SEVERITY:- NORMAL ECG - SINUS RHYTHM : Confirmed by: Belinda Naranjo MD 09-Sep-2018 07:45:28
[2018-09-09] MEDS: NYSTATIN CREAM 15 GM TP SCH ×2 (09:34→17:44)
[2018-09-09] MEDS: HYDROCHLOROTHIAZIDE 12.5 MG TABLET PO SCH (09:35)
[2018-09-09] MEDS: AMLODIPINE BESYLATE 5 MG TABLET PO SCH (09:35)
[2018-09-09] MEDS: METHYLPREDNISOLONE INJ 125 MG/2 ML SDV IV SCH (09:35)
[2018-09-09] MEDS: ENOXAPARIN SODIUM INJ 40 MG/0.4 ML DISP.SYRIN SUBCUT SCH (09:35)
[2018-09-09] MEDS: LEVOFLOXACIN 750 MG TABLET PO SCH (14:09)
--- NOTE | 2018-09-09 15:57 | PDOC PROGRESS REPORT ---
Subjective Progress Note for:: 09/09/18 Subjective:: pt feels better, not back to normal, coughing quite a bit, no fever or chills, poor sleep overnight, no constipation and no dysuria Reason For Visit: ACUTE HYPOXEMIC RESPIRATORY FAILURE, ASTHMA Physical Exam Vital Signs: Temp Pulse Resp BP Pulse Ox 98.8 F 83 16 145/78 H 92 09/09/18 12:00 09/09/18 14:08 09/09/18 14:08 09/09/18 12:00 09/09/18 14:08 Intake & Output 09/08/18 09/09/18 09/10/18 06:59 06:59 06:59 Intake Total 240 480 Output Total 1080 Balance -840 480 Weight 79.7 kg General appearance: PRESENT: no acute distress, well-developed, well-nourished Head exam: PRESENT: atraumatic, normocephalic Eye exam: ABSENT: conjunctival injection, scleral icterus Ear exam: PRESENT: normal external ear exam Mouth exam: PRESENT: moist Respiratory exam: PRESENT: decreased breath sounds, unlabored. ABSENT: rales, rhonchi, wheezes Cardiovascular exam: PRESENT: RRR, tachycardia Pulses: PRESENT: normal radial pulses GI/Abdominal exam: PRESENT: normal bowel sounds, soft. ABSENT: tenderness Rectal exam: PRESENT: deferred Extremities exam: ABSENT: pedal edema Neurological exam: PRESENT: alert, awake, oriented to person, oriented to place , oriented to situation, CN II-XII grossly intact Psychiatric exam: PRESENT: appropriate affect. ABSENT: anxious Skin exam: PRESENT: dry, intact, warm Results Laboratory Results: 09/09/18 05:35 09/09/18 05:35 09/09/18 09/09/18 05:35 05:35 WBC 8.0 RBC 4.43 Hgb 9.7 L Hct 31.5 L MCV 71 L MCH 21.8 L MCHC 30.6 L RDW 23.4 H Plt Count 427 Sodium 137.2 Potassium 4.5 Chloride 101 Carbon Dioxide 25 Anion Gap 11 BUN 13 Creatinine 0.76 Est GFR ( Amer) > 60 Est GFR (Non-Af Amer) > 60 Glucose 154 H Calcium 10.6 H 09/08/18 09/08/18 09/09/18 13:32 18:55 01:07 Troponin I < 0.012 < 0.012 < 0.012 Impressions: Chest X-Ray 09/08/18 10:38 IMPRESSION: NO ACUTE RADIOGRAPHIC FINDING IN THE CHEST. Assessment & Plan - Diagnosis (1) Acute severe exacerbation of asthma Is this a current diagnosis for this admission?: Yes Plan: improving with bronchodilators and steroids though still has hypoxemia. was in 70s and 80s on RA this am and so we have decided to keep him overnight for furthur recovery. will cont with po steroids and bronchodilators, O2 with titration as possible to RA. If still hypoxemic tomorrow DC with home O2 may be in order (2) Acute hypoxemic respiratory failure Is this a current diagnosis for this admission?: Yes Plan: Secondary to asthma exacerbation and bronchitis. He has been treated for bronchitis with antibiotics, will continue to titrate O2 down if possible though it may be indicated to discharge him with home oxygen if he remains hypoxemic. (3) Chronic bilateral low back pain Is this a current diagnosis for this admission?: Yes Plan: Has as needed oxycodone available for his severe chronic low back pain while he is admitted. (4) Insomnia Is this a current diagnosis for this admission?: Yes Plan: Patient struggles with insomnia on a chronic basis. Continue current plan. (5) HTN (hypertension) Is this a current diagnosis for this admission?: Yes Plan: Blood pressure well controlled, continue his amlodipine and hydrochlorothiazide. (6) HLD (hyperlipidemia) Is this a current diagnosis for this admission?: Yes Plan: To new his home dose statin (7) Rash Is this a current diagnosis for this admission?: Yes Plan: Over the right shoulder. Continue with antifungal cream and if worsens discontinue this and consider topical steroids. - Time Time Spent with patient: 25-34 minutes Medications reviewed and adjusted accordingly: Yes - Inpatient Certification Based on my medical assessment, after consideration of the patient's comorbidities, presenting symptoms, or acuity I expect that the services needed warrant INPATIENT care.: Yes I certify that my determination is in accordance with my understanding of Medicare's requirements for reasonable and necessary INPATIENT services [42 CFR 412.3e].: Yes Medical Necessity: Significant Comorbidiites Make Outpatient Treatment Too Risky , Risk of Complication if Not Cared For in Hospital
[2018-09-09] MEDS: PREDNISONE 20 MG TABLET PO SCH (17:43)
[2018-09-09] MEDS: ATORVASTATIN CALCIUM 20 MG TABLET PO SCH (21:00)
[2018-09-09] MEDS: TRAZODONE HCL 50 MG TABLET PO PRN (21:00)
[2018-09-10] MEDS: IPRATROPIUM/ALBUTEROL 0.5-2.5 MG/3 ML AMPUL NEB SCH ×4 (02:12→20:14)
[2018-09-10] MEDS: LANSOPRAZOLE 15 MG TAB.RAP.DR PO SCH ×2 (05:18→17:35)
[2018-09-10] MEDS: HYDROCHLOROTHIAZIDE 12.5 MG TABLET PO SCH (10:57)
[2018-09-10] MEDS: PREDNISONE 20 MG TABLET PO SCH (10:57)
[2018-09-10] MEDS: AMLODIPINE BESYLATE 5 MG TABLET PO SCH (10:57)
[2018-09-10] MEDS: ENOXAPARIN SODIUM INJ 40 MG/0.4 ML DISP.SYRIN SUBCUT SCH (10:59)
[2018-09-10] MEDS: NYSTATIN CREAM 15 GM TP SCH ×2 (11:00→17:36)
[2018-09-10] MEDS: LEVOFLOXACIN 750 MG TABLET PO SCH (14:53)
--- NOTE | 2018-09-10 18:14 | PDOC PROGRESS REPORT ---
Subjective Progress Note for:: 09/10/18 Subjective:: Doing better, breathing better. His O2 sat going from 88-91% on room air, desaturates more with ambulation. Still with cough, but improving. No chest pain or palpitations. Reason For Visit: ACUTE HYPOXEMIC RESPIRATORY FAILURE, ASTHMA Physical Exam Vital Signs: Temp Pulse Resp BP Pulse Ox 98.7 F 99 20 149/58 H 91 L 09/10/18 15:18 09/10/18 15:18 09/10/18 15:18 09/10/18 15:18 09/10/18 15:18 Intake & Output 09/09/18 09/10/18 09/11/18 06:59 06:59 06:59 Intake Total 240 1584 Output Total 1080 Balance -840 1584 Weight 79.7 kg 79.7 kg General appearance: PRESENT: no acute distress, well-developed, well-nourished Head exam: PRESENT: atraumatic, normocephalic Eye exam: ABSENT: conjunctival injection, scleral icterus Ear exam: PRESENT: normal external ear exam Mouth exam: PRESENT: moist Respiratory exam: PRESENT: Occasional wheezing, improved breath sounds, unlabored. ABSENT: rales, rhonchi Cardiovascular exam: PRESENT: RRR, tachycardia Pulses: PRESENT: normal radial pulses GI/Abdominal exam: PRESENT: normal bowel sounds, soft. ABSENT: tenderness Rectal exam: PRESENT: deferred Extremities exam: ABSENT: pedal edema Neurological exam: PRESENT: alert, awake, oriented to person, oriented to place , oriented to situation, CN II-XII grossly intact Psychiatric exam: PRESENT: appropriate affect. ABSENT: anxious Skin exam: PRESENT: dry, intact, warm Results Laboratory Results: 09/09/18 05:35 09/09/18 05:35 09/08/18 09/08/18 09/09/18 13:32 18:55 01:07 Troponin I < 0.012 < 0.012 < 0.012 Impressions: Chest X-Ray 09/08/18 10:38 IMPRESSION: NO ACUTE RADIOGRAPHIC FINDING IN THE CHEST. Assessment & Plan - Diagnosis (1) Acute hypoxemic respiratory failure Is this a current diagnosis for this admission?: Yes (2) Acute severe exacerbation of asthma Is this a current diagnosis for this admission?: Yes (3) Chronic bilateral low back pain Is this a current diagnosis for this admission?: Yes (4) HLD (hyperlipidemia) Is this a current diagnosis for this admission?: Yes (5) HTN (hypertension) Is this a current diagnosis for this admission?: Yes (6) Insomnia Is this a current diagnosis for this admission?: Yes (7) Rash Is this a current diagnosis for this admission?: Yes Plan: Over the right shoulder (8) Tobacco abuse Is this a current diagnosis for this admission?: Yes - Plan Summary Plan Summary: Will continue to titrate oxygen. Continue nebulizers, Levaquin, prednisone. Patient resistant discharged home on O2, states several people smoke at his home. Will reevaluate in a.m. and asked to talk to his daughter whom he lives with and the people who smoke at this time. Patient himself has been counseled to quit smoking.
[2018-09-10] MEDS: TRAZODONE HCL 50 MG TABLET PO PRN (22:12)
[2018-09-10] MEDS: ATORVASTATIN CALCIUM 20 MG TABLET PO SCH (22:12)
[2018-09-11] MEDS: IPRATROPIUM/ALBUTEROL 0.5-2.5 MG/3 ML AMPUL NEB SCH ×3 (01:07→14:04)
[2018-09-11] MEDS: LANSOPRAZOLE 15 MG TAB.RAP.DR PO SCH (07:17)
[2018-09-11] MEDS: AMLODIPINE BESYLATE 5 MG TABLET PO SCH (09:07)
[2018-09-11] MEDS: PREDNISONE 20 MG TABLET PO SCH (09:07)
[2018-09-11] MEDS: HYDROCHLOROTHIAZIDE 12.5 MG TABLET PO SCH (09:07)
[2018-09-11] MEDS: ENOXAPARIN SODIUM INJ 40 MG/0.4 ML DISP.SYRIN SUBCUT SCH (09:07)
[2018-09-11] MEDS: NYSTATIN CREAM 15 GM TP SCH (09:09)
[2018-09-11] MEDS: LEVOFLOXACIN 750 MG TABLET PO SCH (14:40)
[2018-09-11 16:32] VITALS: BP 128/59
--- NOTE | 2018-09-12 23:06 | PDOC DISCHARGE SUMMARY ---
General - Admit/Disc Date/PCP Admission Date/Primary Care Provider: 09/08/18 12:25 Discharge Date: 09/11/18 - Discharge Diagnosis (1) Acute hypoxemic respiratory failure Is this a current diagnosis for this admission?: Yes (2) Acute severe exacerbation of asthma Is this a current diagnosis for this admission?: Yes (3) Chronic bilateral low back pain Is this a current diagnosis for this admission?: Yes (4) HLD (hyperlipidemia) Is this a current diagnosis for this admission?: Yes (5) HTN (hypertension) Is this a current diagnosis for this admission?: Yes (6) Insomnia Is this a current diagnosis for this admission?: Yes (7) Rash Is this a current diagnosis for this admission?: Yes (8) Tobacco abuse Is this a current diagnosis for this admission?: Yes - Additional Information Resuscitation Status: Full Code Discharge Diet: Regular Discharge Activity: Slowly Increase Activity Prescriptions: Albuterol Sulfate [Proair HFA Inhalation Aerosol 8.5 gm MDI] 2 puff IH Q6 30 Days #1 hfa.aer.ad Ipratropium/Albuterol Sulfate [Duoneb 3 ml Ampul] 3 ml NEB RTQ4HP PRN 30 Days # 100 vial.neb PRN Reason: Levofloxacin [Levaquin 750 mg Tablet] 750 mg PO DAILY@1400 5 Days #5 tablet Nystatin [Mycostatin Cream 15 gm] 1 applic TP BID 4 Days #1 tube Prednisone [Deltasone 10 mg Tablet] 10 mg PO ASDIR 6 Days #14 tablet Home Medications: Amlodipine Besylate [Norvasc 10 mg Tablet] 5 mg PO DAILY 09/08/18 Atorvastatin Calcium [Lipitor 80 mg Tablet] 40 mg PO QHS 09/08/18 Betamethasone Valerate [Valisone 0.1 % Cream 15 gm] 1 applic TOP BID 09/08/18 Cholecalciferol (Vitamin D3) [Vitamin D3 1000 Unit Tablet] 1,000 unit PO DAILY 09/08/18 Diclofenac Sodium [Voltaren] 75 mg PO BIDP PRN 09/08/18 Hydrochlorothiazide [Hydrodiuril 25 mg Tablet] 25 mg PO DAILY 09/08/18 Omeprazole 20 mg PO QAM 09/08/18 Paroxetine HCl [Paxil] 30 mg PO DAILY 09/08/18 Sildenafil Citrate [Viagra] 100 mg PO DAILYP PRN 09/08/18 Albuterol Sulfate [Proair HFA Inhalation Aerosol 8.5 gm MDI] 2 puff IH Q6 30 Days #1 hfa.aer.ad 09/09/18 Ipratropium/Albuterol Sulfate [Duoneb 3 ml Ampul] 3 ml NEB RTQ4HP PRN 30 Days # 100 vial.neb 09/09/18 Levofloxacin [Levaquin 750 mg Tablet] 750 mg PO DAILY@1400 5 Days #5 tablet Nystatin [Mycostatin Cream 15 gm] 1 applic TP BID 4 Days #1 tube 09/09/18 Prednisone [Deltasone 10 mg Tablet] 10 mg PO ASDIR 6 Days #14 tablet 09/09/18 History of Present Illness History of Present Illness: KWABENA OJEDA is a 63 year old male who was admitted after presenting as in HPI below: "KWABENA OJEDA is a 63 year old man who has a long-standing history of asthma. He states that he has been coming more more short of breath over the past week. [It] started with a dry cough and now he is starting to produce some whitish phlegm. He, when he was unable to walk across the room without being extremely short of breath, decided to come into the ER for evaluation. He has had "cold sweats", no documented fever. No chest pain. No pleuritic chest pain. No nausea vomiting constipation or diarrhea. No urinary difficulty. No confusion or altered mental status" Hospital Course Hospital Course: Patient was admitted and treated with Solu=medrol, oxygen, nebulizers for asthma exacerbation. Patient smokes and he was counseled to quit smoking -- states he will no longer do so. He improved and steroids was deescalated to prednisone. However, he continues to desarturate to 92-96% on RA with minimal activities and he is being discharged on Home O2. He was also treated with levaquin for bronchitis and this was continued on discharge. He is to f/u with pcp within one week. He is advised he and other family members not to smoke at the house around his O2. His daughter and son-in-law were present and they promised no smoking in the house. Physical Exam Vital Signs: Temp Pulse Resp BP Pulse Ox 98.4 F 88 16 128/59 H 91 L 09/11/18 15:27 09/11/18 15:27 09/11/18 15:27 09/11/18 15:27 09/11/18 15:27 Intake & Output 09/10/18 09/11/18 09/12/18 06:59 06:59 06:59 Intake Total 1584 900 0 Balance 1584 900 0 Weight 79.7 kg 75.5 kg General appearance: PRESENT: no acute distress, well-developed, well-nourished Head exam: PRESENT: atraumatic, normocephalic Eye exam: ABSENT: conjunctival injection, scleral icterus Ear exam: PRESENT: normal external ear exam Mouth exam: PRESENT: moist Respiratory exam: PRESENT: Occasional wheezing, improved breath sounds, unlabored. ABSENT: rales, rhonchi Cardiovascular exam: PRESENT: RRR, tachycardia Pulses: PRESENT: normal radial pulses GI/Abdominal exam: PRESENT: normal bowel sounds, soft. ABSENT: tenderness Rectal exam: PRESENT: deferred Extremities exam: ABSENT: pedal edema Neurological exam: PRESENT: alert, awake, oriented to person, oriented to place , oriented to situation, CN II-XII grossly intact Psychiatric exam: PRESENT: appropriate affect. ABSENT: anxious Skin exam: PRESENT: dry, intact, warm Results Laboratory Results: 09/09/18 05:35 09/09/18 05:35 09/08/18 09/08/18 09/09/18 13:32 18:55 01:07 Troponin I < 0.012 < 0.012 < 0.012 Impressions: Chest X-Ray 09/08/18 10:38 IMPRESSION: NO ACUTE RADIOGRAPHIC FINDING IN THE CHEST. Qualifiers - * PATIENT BEING DISCHARGED WITH ANY OF THE FOLLOWING DIAGNOSIS: No
== END 2018-09-11 17:29 | disposition home or self-care (01) | DRG 189 ==
LOC: ER 10:19 → EH 12:25 → OBSVTOIN 12:25 → 3S 15:45
PROVIDERS: ADMIT Family Medicine; ATTEND Family Medicine
PROC: 3E0F73Z Introduction of Anti-inflammatory into Respiratory Tract, Via Natural or Artificial Opening (ICD-10-PCS; principal; 2018-09-08)
DX: J96.01 Acute respiratory failure with hypoxia (principal); J45.51 Severe persistent asthma with (acute) exacerbation; J40 Bronchitis, not specified as acute or chronic; I10 Essential (primary) hypertension; E78.5 Hyperlipidemia, unspecified; F32.9 Major depressive disorder, single episode, unspecified; D64.9 Anemia, unspecified; F17.200 Nicotine dependence, unspecified, uncomplicated; H91.90 Unspecified hearing loss, unspecified ear; M19.90 Unspecified osteoarthritis, unspecified site; Z96.642 Presence of left artificial hip joint; R94.31 Abnormal electrocardiogram [ECG] [EKG]; M54.5 Low back pain; G89.29 Other chronic pain; G47.00 Insomnia, unspecified; R21 Rash and other nonspecific skin eruption; Z71.6 Tobacco abuse counseling; Z88.0 Allergy status to penicillin
CPT/HCPCS: 36415; 36600; 71045; 80048; 80053; 82803; 84484; 85025; 85027; 93005; 93010; 94640; 96374; 99291; J1650; J2930; J3490; J7512; J7620

== ENCOUNTER 2018-12-08 11:20 | Emergency (ER) | payer OTHER, MEDICARE ==
--- NOTE | 2018-12-08 15:06 | ER Document Report ---
ED General - General Chief Complaint: Abscess Stated Complaint: MOUTH PAIN Time Seen by Provider: 12/08/18 14:55 TRAVEL OUTSIDE OF THE [place] IN LAST 30 DAYS: No - HPI Notes: Patient is a 63-year-old male that presents to the emergency department for chief complaint of facial wound. Patient states for the last 2 weeks he has had swelling and pain in his right cheek. He is on urgent care yesterday who placed him on clindamycin and gave him [place]. Patient has been taking these medications. He came into the emergency room today complaining that it may need to be lanced. Patient denies any difficulty swallowing or breathing. He denies any fevers or chills. He does have a history of chewing tobacco and smoking. He denies history of head neck cancer. Past Medical History: COPD Past Surgical History: Reviewed in chart Social History: History of chewing tobacco and smoking, denies drug and alcohol use Family History: Reviewed and noncontributory for presenting illness Allergies: Reviewed, see documented allergy list. REVIEW OF SYSTEMS: CONSTITUTIONAL : No fever No chills No diaphoresis No recent illness EENT: No vision changes No congestion No sore throat CARDIOVASCULAR: No chest pain No palpitations RESPIRATORY: No shortness of breath No cough No difficulty breathing GASTROINTESTINAL: No abdominal pain No nausea No vomiting No diarrhea GENITOURINARY: No dysuria No hematuria No difficulty urinating MUSCULOSKELETAL: No back pain No leg pain No arm pain SKIN: No rashes No lesions LYMPHATIC: No swollen, enlarged glands. NEUROLOGICAL: No lightheadedness No headache No weakness No paresthesias PSYCHIATRIC: No anxiety No depression PHYSICAL EXAMINATION: Vital signs reviewed, nursing noted reviewed. GENERAL: Well-appearing, well-nourished and in no acute distress. HEAD: Atraumatic, normocephalic. EYES: Eyes appear normal, extraocular movements intact, sclera anicteric, conjunctiva are normal. ENT: 1.5 cm x 1.5 cm excoriated right cheek mass, no fluctuance, granulation tissue centrally with purulent and serosanguineous drainage, no bleeding. Mouth absent of teeth with no gingival erythema or tenderness, no sublingual edema. Nares patent, oropharynx clear without exudates. Moist mucous membranes. NECK: Normal range of motion, supple without lymphadenopathy LUNGS: Breath sounds mildly diminished and wheezing bilaterally HEART: Regular rate and rhythm without murmurs ABDOMEN: Soft, nontender, normoactive bowel sounds. No rebound, guarding, or rigidity. No masses appreciated. EXTREMITIES: Nontender, good range of motion, no pitting or edema. NEUROLOGICAL: No focal neurological deficits. Moves all extremities spontaneously Motor and sensory grossly intact on exam. PSYCH: Normal mood, normal affect. SKIN: Warm, Dry, normal turgor, no rashes or lesions noted on exposed skin - Related Data Allergies/Adverse Reactions: Penicillins Allergy (Verified 09/08/18 10:20) Past Medical History - Social History Smoking Status: Former Smoker Family History: Reviewed & Not Pertinent - Past Medical History Cardiac Medical History: Reports: Hx Hypercholesterolemia, Hx Hypertension Pulmonary Medical History: Reports: Hx Asthma Endocrine Medical History: Denies: Hx Diabetes Mellitus Type 2 Renal/ Medical History: Denies: Hx Peritoneal Dialysis GI Medical History: Denies: Hx Cirrhosis, Hx Gastroesophageal Reflux Disease Musculoskeletal Medical History: Reports Hx Arthritis Skin Medical History: Denies Hx Eczema, Denies Hx Psoriasis Psychiatric Medical History: Reports: Hx Depression Past Surgical History: Reports: Hx Herniorrhaphy, Hx Orthopedic Surgery - left thr, Other - 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 - Immunizations Hx Pneumococcal Vaccination: 06/15/16 Physical Exam - Vital signs Vitals: Temp Pulse Resp BP Pulse Ox 98.1 F 87 18 162/83 H 94 12/08/18 11:57 12/08/18 11:57 12/08/18 11:57 12/08/18 11:57 12/08/18 11:57 Course - Re-evaluation Re-evalutation: 12/08/18 15:03 Vitals reviewed. Nursing notes reviewed. Patient was started on clindamycin and given [place] for pain yesterday. He has an excoriated right cheek mass which is concerning for possible cancer. It has become large in a short period of time which may suggest underlying infection. There is no area of fluctuance requiring drainage. Patient was encouraged to continue taking the clindamycin and the [place]. He will be referred to ENT for biopsy. I did express my concern that this may be malignant and encouraged him to follow-up closely as an outpatient. He will return to the emergency room for any new or worsening symptoms. He is stable at discharge. - Vital Signs Vital signs: Temp Pulse Resp BP Pulse Ox 98.1 F 87 18 162/83 H 94 03/15/19 11:57 12/08/18 11:57 12/08/18 11:57 12/08/18 11:57 12/08/18 11:57 Discharge - Discharge Clinical Impression: Wound of right cheek Qualifiers: Encounter type: initial encounter Qualified Code(s): S01.401A - Unspecified open wound of right cheek and temporomandibular area, initial encounter Condition: Stable Disposition: HOME, SELF-CARE Additional Instructions: Please return to the emergency department if you have any worsening, or concern of your symptoms. Please return to the emergency department if you develop chest pain, difficulty breathing, severe abdominal pain, or ongoing vomiting. Please follow-up with your primary care physician in 2-3 days and any other recommended physicians. If prescribed, take all medications as directed. If you have any questions or concerns do not hesitate to return the emergency department for evaluation. The area on your right cheek may be infection but it may also be cancerous. You need to follow-up with ENT for biopsy if the lesion is not completely resolving with antibiotics. Return to the emergency room for increased pain, redness, swelling or other concerning symptoms. Referrals: EUN CARLOS DO [ASSOCIATE] - 12/11/18
[2018-12-08 15:20] VITALS: BP 159/88
== END 2018-12-08 15:20 | disposition home or self-care (01) ==
LOC: ER 11:20
DX: S01.401A Unspecified open wound of right cheek and temporomandibular area, initial encounter (principal); K08.89 Other specified disorders of teeth and supporting structures; X58.XXXA Exposure to other specified factors, initial encounter; J44.9 Chronic obstructive pulmonary disease, unspecified; Z87.891 Personal history of nicotine dependence; I10 Essential (primary) hypertension; J45.909 Unspecified asthma, uncomplicated
CPT/HCPCS: 99282

== ENCOUNTER 2019-12-16 18:59 | Inpatient (IN) | payer OTHER, MEDICARE ==
--- NOTE | 2019-12-16 19:40 | ER Document Report ---
ED General - General Chief Complaint: Vomiting Stated Complaint: VOMITING BLOOD Time Seen by Provider: 12/16/19 19:36 Primary Care Provider: [facility] [Primary Care Provider] - Follow up as needed Mode of Arrival: Medic Information source: Patient TRAVEL OUTSIDE OF THE [place] IN LAST 30 DAYS: No - HPI Onset: Other - patinet started to have abdominal pain last night and it worsend today Onset/Duration: Gradual Quality of pain: Sharp Severity: Moderate Pain Level: 2 Associated symptoms: Nausea, Vomiting, Other - vomiting blood (bright red) Exacerbated by: Denies Relieved by: Other - patient felt better after vomiting Similar symptoms previously: No Recently seen / treated by doctor: No Notes: 64 year old male with a history of GERD, HTN, HLD, Asthma/COPD here for abdominal pains (epigastric) with nausea and vomiting of bright red blood. The patient started having upper abdominal pain last night. The pain worsened today and he had an urge to vomit this evening. When the patient ran to the bathroom and vomited he noticed bright red blood in his vomit. The patient has never vomited blood before. The patient says he thinks he has had both an upper and lower endoscopy in the past and that the only thing found was polyps. The patient denies recent fevers, chills, sweats, diarrhea, blood in his stool, black stool. - Related Data Allergies/Adverse Reactions: Penicillins Allergy (Verified 09/08/18 10:20) Home Medications: Amlopdipine, Atorvastatin,Levofloaxin, Hctz, Omeprazole, Paxil Past Medical History - Social History Smoking Status: Current Some Day Smoker Family History: Reviewed & Not Pertinent Patient has suicidal ideation: No Patient has homicidal ideation: No - Past Medical History Cardiac Medical History: Reports: Hx Hypercholesterolemia, Hx Hypertension Pulmonary Medical History: Reports: Hx Asthma Endocrine Medical History: Denies: Hx Diabetes Mellitus Type 2 Renal/ Medical History: Denies: Hx Peritoneal Dialysis GI Medical History: Denies: Hx Cirrhosis, Hx Gastroesophageal Reflux Disease Musculoskeletal Medical History: Reports Hx Arthritis Skin Medical History: Denies Hx Eczema, Denies Hx Psoriasis Psychiatric Medical History: Reports: Hx Depression Past Surgical History: Reports: Hx Herniorrhaphy, Hx Orthopedic Surgery - left thr, Other - 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 - Immunizations Hx Pneumococcal Vaccination: 06/15/16 Physical Exam - Vital signs Vitals: Resp 19 12/16/19 19:05 - Notes Notes: Reviewed vital signs and nursing note as charted by RN. CONSTITUTIONAL: Well-appearing, well-nourished; attentive, alert and interactive with good eye contact; acting appropriately for age HEAD: Normocephalic; atraumatic; No swelling EYES: PERRL; Conjunctivae clear, no drainage; EOMI ENT: External ears without lesions; External auditory canal is patent; TMs without erythema, landmarks clear and well visualized; no rhinorrhea; Pharynx without erythema or lesions, no tonsillar hypertrophy, airway patent, mucous membranes pink and moist NECK: Supple, no cervical lymphadenopathy, no masses CARD: Regular rate and rhythm; no murmurs, no rubs, no gallops, capillary refill < 2 seconds, symmetric pulses RESP: Respiratory rate and effort are normal. There is normal chest excursion. No respiratory distress, no retractions, no stridor, no nasal flaring, no accessory muscle use. The lungs are clear to auscultation bilaterally, no wheezing, no rales, no rhonchi. ABD/GI: Normal bowel sounds; non-distended; soft, non-tender, no rebound, no guarding, no palpable organomegaly EXT: Normal ROM in all joints; non-tender to palpation; no effusions, no edema SKIN: Normal color for age and race; warm; dry; good turgor; no acute lesions noted NEURO: No facial asymmetry; Moves all extremities equally; Motor and sensory function intact Course - Re-evaluation Re-evalutation: 12/16/19 21:49 The patient arrived hypotensive and tachycardic with a complaint of abdominal pain with vomiting blood x 1. The abdominal pain and nausea nearly completely subsided after he vomited. The patient was found to have a hemoglobin of 7.5 and his baseline hemoglobin seems to be in the high 9s. Dr. Pierre of Surgery was consulted and since the patient has no history of liver disease and no evidence of cirrhosis on abdominal ultrasound he feels the patient is safe to be managed here at [facility]. The patient was admitted the hospitalist. Patient had 2 units of blood ordered in the ER after IV fluids were given (patient's blood pressure and HR normalized). IV Portonix ordered by Hospitalist. - Vital Signs Vital signs: Temp Pulse Resp BP Pulse Ox 98.2 F 96 22 H 109/72 98 12/16/19 21:40 12/16/19 21:40 12/16/19 21:40 12/16/19 21:40 12/16/19 21:40 - Laboratory Result Diagrams: 12/16/19 19:36 12/16/19 19:36 Laboratory results interpreted by me: 12/16/19 12/16/19 12/16/19 19:31 19:36 19:36 RBC 2.59 L Hgb 7.5 L Hct 23.2 L RDW 16.9 H PT 17.8 H Sodium Potassium Chloride Carbon Dioxide POC Glucose 133 H Calcium Total Bilirubin AST Alkaline Phosphatase Total Protein Albumin Crossmatch 12/16/19 12/16/19 19:36 19:36 RBC Hgb Hct RDW PT Sodium 136.1 L Potassium 3.4 L Chloride 112 H Carbon Dioxide 15 L POC Glucose Calcium 6.5 L* Total Bilirubin 0.1 L AST 16 L Alkaline Phosphatase 26 L Total Protein 4.3 L Albumin 1.9 L Crossmatch See Detail - Diagnostic Test Radiology reviewed: Image reviewed, Reports reviewed - EKG Interpretation by Me EKG shows normal: Sinus rhythm, Harmans, Intervals, QRS Complexes, ST-T Waves Rate: Normal Rhythm: NSR Critical Care Note - Critical Care Note Total time excluding time spent on procedures (mins): 31 Comments: Patient arrived hypotensive and tachycardic. Surgery consulted and spoken to several times. Hospitalist spoken to several times as well. Discharge - Discharge Clinical Impression: Hematemesis Qualifiers: Nausea presence: with nausea Qualified Code(s): K92.0 - Hematemesis GI bleed Qualifiers: GI bleed type/associated pathology: unspecified gastrointestinal hemorrhage type Qualified Code(s): K92.2 - Gastrointestinal hemorrhage, unspecified Condition: Fair Disposition: ADMITTED INPATIENT Admitting Provider: Bri (Hospitalist) Unit Admitted: Medical Floor [facility]errals: [facility] [Primary Care Provider] - Follow up as needed
[2019-12-16] MEDS ORDERED: NORMAL SALINE 1000 ML 1,000 ML IV ONE (19:49)
[2019-12-16 19:55] LABS: ABSOLUTE BASOPHILS # (AUTO) 0.1 10^3/uL (0.0-0.2); ABSOLUTE EOSINOPHILS # (AUTO) 0.1 10^3/uL (0.0-0.6); ABSOLUTE LYMPHOCYTES (AUTO) 1.6 10^3/uL (0.5-4.7); ABSOLUTE MONOCYTES (AUTO) 0.5 10^3/uL (0.1-1.4); ABSOLUTE NEUT (AUTO) 6.7 10^3/uL (1.7-8.2); BASOPHILS % (AUTO) 0.7 % (0-2); EOSINOPHILS % (AUTO) 1.2 % (0-6); HEMATOCRIT 23.2 % (37.9-51.0); LYMPHOCYTES % (AUTO) 18.4 % (13-45); MEAN CORPUSCULAR HGB CONC 32.3 g/dL (32.0-36.0); MEAN CORPUSCULAR VOLUME 90 fl (80-97); MONOCYTES % (AUTO) 5.1 % (3-13); PLATELET COUNT 269 10^3/uL (150-450); RED BLOOD COUNT 2.59 10^6/uL (4.35-5.55); RED CELL DISTRIBUTION WIDTH 16.9 % (11.5-14.0); SEGMENTED NEUTROPHILS % (AUTO) 74.6 % (42-78); TOTAL CELLS COUNTED % (AUTO) 100 %
[2019-12-16 19:57] LABS: HEMOGLOBIN 7.5 g/dL (13.5-17.0)
[2019-12-16 20:01] LABS: INTERNATIONAL RATION (INR) 1.45; PROTHROMBIN TIME 17.8 SEC (11.4-15.4)
[2019-12-16 20:02] LABS: PARTIAL THROMBOPLASTIN TIME 24.7 SEC (23.5-35.8)
[2019-12-16 20:12] LABS: ALBUMIN 1.9 g/dL (3.5-5.0); ALKALINE PHOSPHATASE 26 U/L (38-126); ANION GAP 9 (5-19); ASPARTATE AMINO TRANSFERASE 16 U/L (17-59); BILIRUBIN,DIRECT 0.1 mg/dL (0.0-0.4); BILIRUBIN,TOTAL 0.1 mg/dL (0.2-1.3); BLOOD UREA NITROGEN 17 mg/dL (7-20); CARBON DIOXIDE 15 mmol/L (22-30); CHLORIDE 112 mmol/L (98-107); GLUCOSE 77 mg/dL (75-110); POTASSIUM 3.4 mmol/L (3.6-5.0); TOTAL PROTEIN 4.3 g/dL (6.3-8.2)
[2019-12-16 20:38] LABS: CALCIUM 6.5 mg/dL (8.4-10.2)
--- NOTE | 2019-12-16 21:15 | RADIOLOGY REPORT (SQ) ---
EXAM DESCRIPTION: Right upper quadrant abdominal ultrasound CLINICAL HISTORY: 64 years Male; eval for cause of RUQ pain and Epigastric pain TECHNIQUE: Abdominal ultrasound was performed. COMPARISON: None. FINDINGS: Pancreas: The pancreas is not well seen. Liver: Measures 15.9 cm in length. No obvious mass.. Portal vein is patent with hepatopedal flow. Gallbladder: The wall measures 2.2 mm. No stones or sludge. No pericholecystic fluid. No sonographic Caban's. Common bile duct: 2.7 mm. Right kidney: Measures 11.3 x 6.7 x 5. 4 cm. Blood flow is seen throughout.. No hydronephrosis. Aorta:Visualized portions are within normal limits. IVC: Visualized portions are within normal limits. IMPRESSION: Unremarkable right upper quadrant ultrasound.
[2019-12-16] MEDS ORDERED: PANTOPRAZOLE SODIUM 40 MG VIAL IV ONE ×2 (21:58→23:00)
[2019-12-16] MEDS ORDERED: ONDANSETRON HCL INJ/PF 4 MG/2 ML SDV IV PRN (21:59)
[2019-12-16] MEDS ORDERED: LEVALBUTEROL HCL NEB 0.63 MG/3 ML AMPUL NEB PRN (21:59)
[2019-12-16] MEDS ORDERED: NICOTINE 21 MG/24 HR PATCH.TD24 TD PRN (22:06)
[2019-12-16] MEDS ORDERED: MORPHINE SULFATE 10 MG/ML INJ IV PRN ×3 (22:06)
[2019-12-16] MEDS ORDERED: LORAZEPAM INJ 2 MG/1 ML VIAL IV PRN (22:06)
[2019-12-16] MEDS: NORMAL SALINE 1000 ML 1,000 ML IV PRN (23:49)
[2019-12-17 00:38] LABS: HEMATOCRIT 32.3 % (37.9-51.0); MEAN CORPUSCULAR HEMOGLOBIN 29.5 pg (27.0-33.4); MEAN CORPUSCULAR HGB CONC 34.2 g/dL (32.0-36.0); PLATELET COUNT 296 10^3/uL (150-450); RED BLOOD COUNT 3.74 10^6/uL (4.35-5.55); RED CELL DISTRIBUTION WIDTH 15.8 % (11.5-14.0); WHITE BLOOD COUNT 11.7 10^3/uL (4.0-10.5)
[2019-12-17 00:39] LABS: MEAN CORPUSCULAR VOLUME 86 fl (80-97)
--- NOTE | 2019-12-17 00:44 | PDOC H&P ---
History of Present Illness Admission Date/PCP: 12/16/2019 21:32 [facility] Patient complains of: Hematemesis History of Present Illness: KWABENA OJEDA is a 64 year old male who presented the emergency room with acute hematemesis. He admits the onset of mild constant nonradiating sharp epi gastric abdominal pain on the night prior to admission. The pain gradually worsened to a moderate intensity by morning, was accompanied by nausea and one large emesis of bright red blood with moderate relief of the pain. The patient admits associated dark tarry stools for the last 3 days. He denies other associated or accompanying signs and symptoms. He admits a remote prior similar episode. He has not identified any additional aggravating or ameliorating factors for his hematemesis. In the emergency room he was found to be mildly tachycardic, mildly hypotensive and acutely anemic. He received red blood cell transfusions and IV fluids with resolution of his symptoms. He was subsequently admitted to the hospital for further evaluation and treatment. Past Medical History Cardiac Medical History: Reports: Hyperlipidema, Hypertension Denies: Atrial Fibrillation, Congestive Heart Failure, Coronary Artery Disease, Myocardial Infarction Pulmonary Medical History: Reports: Asthma, Chronic Obstructive Pulmonary Disease (COPD), Respiratory Failure EENT Medical History: Denies: Cataracts, Ears - Hearing aids Neurological Medical History: Denies: Hemorrhagic CVA, Ischemic CVA, Seizures Endocrine Medical History: Denies: Diabetes Mellitus Type 1, Diabetes Mellitus Type 2, Hyperthyroidism, Hypothyroidism Renal/ Medical History: Denies: Chronic Kidney Disease, Nephrolithiasis Malignancy Medical History: Reports: None GI Medical History: Reports: Other - 1 episode of UGI bleed in remote past with no etiology established Denies: Cirrhosis, Crohn's Disease, Gastroesophageal Reflux Disease, Hepatitis, Ulcerative Colitis GI History Note: Patient believes he had upper and lower endoscopy in the past and also believes he was told he had colon polyps Musculoskeltal Medical History: Reports: Arthritis - Takes diclofenac for arthritis and back pain relief, Other - Chronic back pain Denies: Gout Skin Medical History: Denies: Eczema, Psoriasis Psychiatric Medical History: Reports: Alcohol Dependency, Depression, Tobacco Dependency Denies: Substance Abuse Traumatic Medical History: Reports: None Hematology: Denies: Anemia, Bleeding Tendencies Infectious Medical History: Reports: None Past Surgical History Past Surgical History: Reports: Herniorrhaphy, Hip Replacement Social History Information Source: Patient Lives with: Family Smoking Status: Current Every Day Smoker Cigarettes Packs Per Day: 0.2 Electronic Cigarette use?: No Frequency of Alcohol Use: Rare Hx Recreational Drug Use: Yes Drugs: Marijuana - Helps with his back pain Hx Prescription Drug Abuse: No - Advance Directive Resuscitation Status: Full Code Surrogate healthcare decision maker:: Tess Taylor Family History Family History: CAD, DM, Hypertension, Malignancy Parental Family History Reviewed: Yes Children Family History Reviewed: No Sibling(s) Family History Reviewed.: Yes Medication/Allergy Home Medications: Hydrochlorothiazide [Hydrodiuril 25 mg Tablet] 25 mg PO DAILY 09/08/18 Omeprazole 20 mg PO QAM 09/08/18 Albuterol Sulfate [Proair HFA Inhalation Aerosol 8.5 gm MDI] 2 puff IH Q6 PRN 12/17/19 Ferrous Gluconate 325 mg PO DAILY 12/17/19 Ipratropium/Albuterol Sulfate [Combivent Respimat 4 gm Mdi] 1 puff IH QID 12/17/19 Ipratropium/Albuterol Sulfate [Duoneb 3 ml Ampul] 3 ml NEB DAILY 12/17/19 Allergies/Adverse Reactions: Penicillins Allergy (Verified 09/08/18 10:20) Review of Systems Constitutional: ABSENT: chills, fever(s) Eyes: ABSENT: visual disturbances, other - Eye pain Ears: ABSENT: hearing changes, other - Ear pain Nose, Mouth, and Throat: ABSENT: headache(s), sore throat Cardiovascular: ABSENT: chest pain, palpitations Respiratory: ABSENT: cough, dyspnea Gastrointestinal: PRESENT: as per HPI, abdominal pain, hematemesis, melena, n ausea, vomiting. ABSENT: constipation, diarrhea Genitourinary: ABSENT: dysuria, hematuria Musculoskeletal: PRESENT: back pain - Chronic. ABSENT: joint swelling, muscle weakness Integumentary: ABSENT: pruritus, rash Neurological: ABSENT: confusion, convulsions, focal weakness, memory loss, syncope Psychiatric: ABSENT: anxiety, depression Endocrine: ABSENT: cold intolerance, heat intolerance, polydipsia, polyphagia, polyuria Hematologic/Lymphatic: ABSENT: easy bleeding, easy bruising Allergic/Immunologic: ABSENT: seasonal rhinorrhea Physical Exam Vital Signs: Temp Pulse Resp BP Pulse Ox 99.0 F 97 21 H 113/74 97 12/16/19 21:15 12/16/19 21:15 12/16/19 21:15 12/16/19 21:15 12/16/19 21:15 Intake & Output 12/14/19 12/15/19 12/16/19 23:59 23:59 23:59 Intake Total 0 Balance 0 Weight 77.6 kg General appearance: PRESENT: no acute distress, cooperative Head exam: PRESENT: atraumatic, normocephalic Eye exam: PRESENT: conjunctiva pink. ABSENT: conjunctival injection, scleral icterus Ear exam: PRESENT: normal external ear exam. ABSENT: bleeding, drainage Mouth exam: PRESENT: dry mucosa, neck supple Neck exam: ABSENT: thyromegaly, tracheal deviation Respiratory exam: PRESENT: decreased breath sounds - Mildly decreased breath sounds throughout all grey, prolonged expiratory phas - Mildly prolonged expi ratory phase in all grey, symmetrical, unlabored, wheezes - Minimal expiratory wheezes present throughout all grey Cardiovascular exam: PRESENT: RRR. ABSENT: clicks, gallop, rubs Pulses: PRESENT: normal radial pulses, normal dorsalis pedis pul Vascular exam: PRESENT: normal capillary refill. ABSENT: pallor GI/Abdominal exam: PRESENT: normal bowel sounds, soft, tenderness - Moderate tenderness palpation in the epigastric region Rectal exam: PRESENT: deferred Extremities exam: ABSENT: joint swelling, pedal edema Musculoskeletal exam: ABSENT: deformity, dislocation Neurological exam: PRESENT: alert, oriented to person, oriented to place, oriented to time, oriented to situation, CN II-XII grossly intact. ABSENT: motor sensory deficit Psychiatric exam: PRESENT: appropriate affect, normal mood Skin exam: PRESENT: dry, intact, warm. ABSENT: jaundice, rash, urticaria Results Laboratory Results: 12/16/19 19:36 12/16/19 19:36 12/16/19 12/16/19 12/16/19 19:36 19:36 19:36 WBC 9.0 RBC 2.59 L Hgb 7.5 L Hct 23.2 L MCV 90 MCH 29.0 MCHC 32.3 RDW 16.9 H Plt Count 269 Seg Neutrophils % 74.6 Sodium 136.1 L Potassium 3.4 L Chloride 112 H Carbon Dioxide 15 L Anion Gap 9 BUN 17 Creatinine 0.56 Est GFR ( Amer) > 60 Glucose 77 Calcium 6.5 L* Total Bilirubin 0.1 L AST 16 L Alkaline Phosphatase 26 L Total Protein 4.3 L Albumin 1.9 L Blood Type A POSITIVE Antibody Screen NEGATIVE Impressions: Abdomen Ultrasound 12/16/19 20:23 IMPRESSION: Unremarkable right upper quadrant ultrasound. Assessment and Plan - Diagnosis (1) Acute upper GI hemorrhage Is this a current diagnosis for this admission?: Yes (2) Hematemesis Qualifiers: Nausea presence: with nausea Qualified Code(s): K92.0 - Hematemesis Is this a current diagnosis for this admission?: Yes (3) Anemia due to blood loss, acute Is this a current diagnosis for this admission?: Yes (4) Asthma with COPD (chronic obstructive pulmonary disease) Is this a current diagnosis for this admission?: Yes (5) HTN (hypertension) Qualifiers: Hypertension type: unspecified Qualified Code(s): I10 - Essential (primary) hypertension Is this a current diagnosis for this admission?: Yes (6) HLD (hyperlipidemia) Qualifiers: Hyperlipidemia type: unspecified Qualified Code(s): E78.5 - Hyperlipidemia, unspecified Is this a current diagnosis for this admission?: Yes (7) Tobacco use disorder, moderate, dependence Is this a current diagnosis for this admission?: Yes - Plan Summary Summary: Patient is admitted to the medical floor where he will receive routine supportive and symptomatic cares. He received a 1 unit packed red blood cell transfusion in the ER and further transfusions will be provided as required. Serial hemoglobins will be obtained every 6 hours. A surgical consultation with Dr. Pierre has been placed. Patient is treated with an 80 mg bolus dose of Protonix will be followed with 40 mg IV infusions every 12 hours. Patient will remain on IV fluid crystalloid support utilizing normal saline. Smoking cessation has been advised and counseled briefly at the bedside. A nicotine r eplacement patch is available for the patient's use, if desired. The patient will be n.p.o. in anticipation of an endoscopy procedure in the morning. Patient received Ativan 1 mg IV every 4 hours as needed anxiety or restlessness. - Time Time Spent with patient: 15-24 minutes Smoking Cessation Education: 3 to 10 minutes Anticipated discharge: Home with Homehealth - Inpatient Certification Based on my medical assessment, after consideration of the patient's comorbidities, presenting symptoms, or acuity I expect that the services needed warrant INPATIENT care.: Yes I certify that my determination is in accordance with my understanding of Medicare's requirements for reasonable and necessary INPATIENT services [42 CFR 412.3e].: Yes Medical Necessity: Need Close Monitoring Due to Risk of Patient Decompensation, Need For IV Fluids, Need for Surgery, Risk of Complication if Not Cared For in Hospital, Risk of Diagnosis Which Will Require Inpatient Eval/Care/Monitoring
--- NOTE | 2019-12-17 05:48 | EKG REPORT ---
SEVERITY:- OTHERWISE NORMAL ECG - SINUS TACHYCARDIA : Confirmed by: Belinda Naranjo MD 17-Dec-2019 05:46:58
--- NOTE | 2019-12-17 05:57 | PDOC CONSULTATION ---
Consultation Consult Date: 12/17/19 Provider Consulted: SURGICAL SURGICALIST MD Consult reason:: Hematemesis History of Present Illness Admission Date/PCP: 12/16/19 22:03 [facility] History of Present Illness: KWABENA OJEDA is a 64 year old male seen in consultation at the request of the hospitalist service. This is a patient who reported hematemesis last night. It was preceded by nausea and abdominal cramping. He had one episode of hematemesis at home, and presented to the emergency department. Patient's hemoglobin was found to be 7.5 in the emergency department. He was given 1 unit of blood. Overnight, he had a single bloody bowel movement. At present, the patient denies any abdominal pain, nausea, vomiting, headache, orthostasis, dizziness, blurry vision, shortness of breath, rash, sore throat, or cough. The patient does have a history of intermittent alcohol use, as well as steroid use (for lung disease), and daily Voltaren use. The patient denies anticoagulant or antiplatelet medications. Past Medical History Cardiac Medical History: Reports: Hyperlipidema, Hypertension Denies: Atrial Fibrillation, Congestive Heart Failure, Coronary Artery Disease, Myocardial Infarction Pulmonary Medical History: Reports: Asthma, Chronic Obstructive Pulmonary Disease (COPD), Respiratory Failure EENT Medical History: Denies: Cataracts, Ears - Hearing aids Neurological Medical History: Denies: Hemorrhagic CVA, Ischemic CVA, Seizures Endocrine Medical History: Denies: Diabetes Mellitus Type 1, Diabetes Mellitus Type 2, Hyperthyroidism, Hypothyroidism Renal/ Medical History: Denies: Chronic Kidney Disease, Nephrolithiasis Malignancy Medical History: Reports: None GI Medical History: Reports: Other - 1 episode of UGI bleed in remote past with no etiology established Denies: Cirrhosis, Crohn's Disease, Gastroesophageal Reflux Disease, Hepatitis, Peptic Ulcer Disease, Ulcerative Colitis Musculoskeltal Medical History: Reports: Arthritis - Takes diclofenac for arthritis and back pain relief, Other - Chronic back pain Denies: Gout Skin Medical History: Denies: Eczema, Psoriasis Psychiatric Medical History: Reports: Alcohol Dependency, Depression, Tobacco Dependency Denies: Substance Abuse Traumatic Medical History: Reports: None Hematology: Denies: Anemia, Bleeding Tendencies Infectious Medical History: Reports: None Past Surgical History Past Surgical History: Reports: Herniorrhaphy, Hip Replacement, Orthopedic Surgery - left thr, Other - 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 Social History Lives with: Family Smoking Status: Former Smoker Cigarettes Packs Per Day: 0.2 Electronic Cigarette use?: No Last Time Smoked: 12/16/2019 Frequency of Alcohol Use: Rare Hx Recreational Drug Use: Yes Drugs: Marijuana - Helps with his back pain Hx Prescription Drug Abuse: No - Advance Directive Resuscitation Status: Full Code Family History Family History: CAD, DM, Hypertension, Malignancy Parental Family History Reviewed: Yes Children Family History Reviewed: Yes Sibling(s) Family History Reviewed.: Yes Medication/Allergy Home Medications: Amlodipine Besylate [Norvasc 10 mg Tablet] 5 mg PO DAILY 09/08/18 Atorvastatin Calcium [Lipitor 80 mg Tablet] 40 mg PO QHS 09/08/18 Cholecalciferol (Vitamin D3) [Vitamin D3 1000 Unit Tablet] 1,000 unit PO DAILY 09/08/18 Diclofenac Sodium [Voltaren] 75 mg PO BIDP PRN 09/08/18 Hydrochlorothiazide [Hydrodiuril 25 mg Tablet] 25 mg PO DAILY 09/08/18 Omeprazole 20 mg PO QAM 09/08/18 Paroxetine HCl [Paxil] 30 mg PO DAILY 09/08/18 Albuterol Sulfate [Proair HFA Inhalation Aerosol 8.5 gm MDI] 2 puff IH Q6 PRN 12/17/19 Ipratropium/Albuterol Sulfate [Combivent Respimat 4 gm Mdi] 1 puff IH QID 12/17/19 Ipratropium/Albuterol Sulfate [Duoneb 3 ml Ampul] 3 ml NEB DAILY 12/17/19 Allergies/Adverse Reactions: Penicillins Allergy (Verified 09/08/18 10:20) Review of Systems Constitutional: ABSENT: anorexia, chills, fatigue Eyes: ABSENT: visual disturbances Ears: ABSENT: hearing changes Nose, Mouth, and Throat: ABSENT: mouth pain, sore throat Cardiovascular: ABSENT: chest pain Respiratory: ABSENT: cough Gastrointestinal: PRESENT: hematemesis, melena, nausea, vomiting. ABSENT: abdominal pain Musculoskeletal: ABSENT: back pain Integumentary: ABSENT: pruritus, rash Neurological: ABSENT: confusion, convulsions, dizziness Psychiatric: ABSENT: anxiety, depression Endocrine: ABSENT: cold intolerance, heat intolerance Hematologic/Lymphatic: ABSENT: easy bleeding, easy bruising Physical Exam Vital Signs: Temp Pulse Resp BP Pulse Ox 99.1 F 92 18 122/72 95 03/23/20 04:13 12/17/19 04:13 12/17/19 04:13 12/17/19 04:13 12/17/19 04:13 Intake & Output 12/15/19 12/16/19 12/17/19 06:59 06:59 06:59 Intake Total 2350 Balance 2350 Weight 77.6 kg General appearance: PRESENT: no acute distress, cooperative Head exam: PRESENT: atraumatic, normocephalic Eye exam: PRESENT: EOMI, PERRLA. ABSENT: scleral icterus Mouth exam: PRESENT: moist, neck supple Neck exam: ABSENT: meningismus, tenderness, thyromegaly, tracheal deviation Respiratory exam: PRESENT: clear to auscultation varsha, unlabored. ABSENT: chest wall tenderness, wheezes Cardiovascular exam: ABSENT: tachycardia Pulses: PRESENT: normal radial pulses Vascular exam: PRESENT: normal capillary refill GI/Abdominal exam: ABSENT: distended, firm, guarding Rectal exam: PRESENT: deferred Extremities exam: ABSENT: clubbing Musculoskeletal exam: ABSENT: deformity Neurological exam: PRESENT: alert, awake, oriented to person, oriented to place, oriented to time, oriented to situation Psychiatric exam: ABSENT: agitated, anxious, depressed Focused psych exam: ABSENT: delusional Skin exam: ABSENT: cyanosis, erythema, jaundice Results Laboratory Results: 12/17/19 00:15 12/16/19 19:36 12/16/19 12/16/19 12/16/19 19:36 19:36 19:36 WBC 9.0 RBC 2.59 L Hgb 7.5 L Hct 23.2 L MCV 90 MCH 29.0 MCHC 32.3 RDW 16.9 H Plt Count 269 Seg Neutrophils % 74.6 Sodium 136.1 L Potassium 3.4 L Chloride 112 H Carbon Dioxide 15 L Anion Gap 9 BUN 17 Creatinine 0.56 Est GFR ( Amer) > 60 Glucose 77 Calcium 6.5 L* Total Bilirubin 0.1 L AST 16 L Alkaline Phosphatase 26 L Total Protein 4.3 L Albumin 1.9 L Stool Occult Blood Blood Type A POSITIVE Antibody Screen NEGATIVE 12/17/19 12/17/19 00:15 03:15 WBC 11.7 H RBC 3.74 L Hgb 11.0 L D Hct 32.3 L MCV 86 D MCH 29.5 MCHC 34.2 RDW 15.8 H Plt Count 296 Seg Neutrophils % Sodium Potassium Chloride Carbon Dioxide Anion Gap BUN Creatinine Est GFR ( Amer) Glucose Calcium Total Bilirubin AST Alkaline Phosphatase Total Protein Albumin Stool Occult Blood POSITIVE Blood Type Antibody Screen Impressions: Abdomen Ultrasound 12/16/19 20:23 IMPRESSION: Unremarkable right upper quadrant ultrasound. Assessment & Plan - Diagnosis (1) GI bleed Qualifiers: GI bleed type/associated pathology: unspecified gastrointestinal hemorrhage type Qualified Code(s): K92.2 - Gastrointestinal hemorrhage, unspecified (2) Hematemesis Qualifiers: Nausea presence: with nausea Qualified Code(s): K92.0 - Hematemesis - Plan Summary Plan Summary: This is a 64-year-old male with hematemesis. His hemoglobin was measured at 7.5. The patient received 1 unit of blood, and his hemoglobin john to 11. I am suspicious that this number is not accurate. I will recheck his hemoglobin this morning. Patient continues to have melanotic stools. It certainly could be residual from his bleeding yesterday, or it may be continued upper gastrointestinal bleeding. He is on an intravenous PPI. I will add Carafate to his medication regimen. I have recommended an upper endoscopy to visualize the bleeding area, and provide necessary therapeutic interventions. The patient has agreed to this. Risks/benefits discussed, informed consent obtained, and all questions answered.
[2019-12-17] MEDS: NORMAL SALINE 1000 ML 1,000 ML IV PRN ×2 (06:19→23:59)
[2019-12-17 06:56] LABS: HEMATOCRIT 30.4 % (37.9-51.0); HEMOGLOBIN 10.2 g/dL (13.5-17.0); MEAN CORPUSCULAR HGB CONC 33.4 g/dL (32.0-36.0); MEAN CORPUSCULAR VOLUME 87 fl (80-97); PLATELET COUNT 270 10^3/uL (150-450); RED CELL DISTRIBUTION WIDTH 15.7 % (11.5-14.0); WHITE BLOOD COUNT 10.3 10^3/uL (4.0-10.5)
[2019-12-17 07:02] LABS: INTERNATIONAL RATION (INR) 1.15; PROTHROMBIN TIME 14.8 SEC (11.4-15.4)
[2019-12-17 07:17] LABS: ALBUMIN 2.8 g/dL (3.5-5.0); ALKALINE PHOSPHATASE 44 U/L (38-126); ASPARTATE AMINO TRANSFERASE 19 U/L (17-59); BILIRUBIN,TOTAL 0.4 mg/dL (0.2-1.3); BLOOD UREA NITROGEN 25 mg/dL (7-20); CALCIUM 8.3 mg/dL (8.4-10.2); CHOLESTEROL 108.68 mg/dL (0-200); GLUCOSE 88 mg/dL (75-110); TOTAL PROTEIN 5.6 g/dL (6.3-8.2); TRIGLYCERIDES 259 mg/dL (<150)
[2019-12-17 07:22] LABS: CHLORIDE 111 mmol/L (98-107)
[2019-12-17 07:28] LABS: DIRECT LDL 45 mg/dL (<100)
[2019-12-17 07:31] LABS: ANION GAP 3 (5-19); CARBON DIOXIDE 25 mmol/L (22-30); VLDL CHOLESTEROL 51.8 mg/dL (10-31)
[2019-12-17] MEDS: SUCRALFATE 1 GM TABLET PO SCH ×4 (07:44→21:27)
[2019-12-17] MEDS ORDERED: PROPOFOL INJ 200 MG/20 ML VIAL IV ONE (08:24)
--- NOTE | 2019-12-17 09:38 | Operative Report ---
Operative Report DATE OF SURGERY: 12/17/19 PREOPERATIVE DIAGNOSIS: Acute GI bleed; history of alcoholism POSTOPERATIVE DIAGNOSIS: Same. 1. Moderate-sized gastric ulcer, acute not actively bleeding however likely the source of recent GI bleeding. 2. Moderate duodenitis, no ulceration. OPERATION: 1. Esophagogastroduodenoscopy. 2. Cold forceps biopsy of gastric ulcer SURGEON: HILDA STANTON ANESTHESIA: LMAC TISSUE REMOVED OR ALTERED: Coastal biopsy of a gastric ulcer COMPLICATIONS: None ESTIMATED BLOOD LOSS: None INTRAOPERATIVE FINDINGS: See below PROCEDURE: The patient was taken to the preop holding her to the main operating room where LMAC anesthesia was induced. The patient was placed in the semirecumbent position left lateral cubitus, oral mouthpiece inserted. Surgical plan surgical timeout conducted. The flexible adult upper endoscope was advanced to the oropharynx without difficulty through the esophagus through the stomach and into the first and second portions of the duodenum. There was no evidence of bleeding, clot, polyp, stricture. No evidence of significant esophageal varices. In the duodenum there was no evidence of active bleeding but moderate duodenitis. In the stomach there was a 2 cm acute gastric ulcer, with central ulceration, heaped up margin, photos taken. A cold forceps biopsy was obtained of the border of the intact epithelium. Bleeding was minimal. This is likely the source of the acute bleeding. The rest of the stomach was grossly unremarkable. There is no significant hiatal hernia. The scope was brought back through the GE junction at approximately 38 cm from the incisor. Esophagus was scoped. No evidence of bleeding stricture or polyp. There were no significant varices seen. The scope was withdrawn for the patient oropharynx. He tolerated procedure well. Recommendations: 1. Antiulcer therapy; await results of biopsy of gastric ulcer to rule out malignancy 2. Patient will need a follow-up endoscopy approximately 3 months. He can follow-up with [facility] at that time to schedule the procedure. 3. I discussed the above with Dr. Leblanc, hospitalist.
[2019-12-17] MEDS ORDERED: IPRATROPIUM/ALBUTEROL 0.5-2.5 MG/3 ML AMPUL NEB PRN (10:43)
[2019-12-17] MEDS ORDERED: ACETAMINOPHEN 325 MG TABLET PO PRN (10:44)
[2019-12-17] MEDS: PANTOPRAZOLE SODIUM 40 MG VIAL IV SCH ×2 (10:47→21:27)
[2019-12-17 12:20] LABS: HEMATOCRIT 26.9 % (37.9-51.0); HEMOGLOBIN 9.2 g/dL (13.5-17.0); MEAN CORPUSCULAR HEMOGLOBIN 29.7 pg (27.0-33.4); MEAN CORPUSCULAR HGB CONC 34.1 g/dL (32.0-36.0); MEAN CORPUSCULAR VOLUME 87 fl (80-97); PLATELET COUNT 264 10^3/uL (150-450); RED BLOOD COUNT 3.09 10^6/uL (4.35-5.55); RED CELL DISTRIBUTION WIDTH 16.4 % (11.5-14.0); WHITE BLOOD COUNT 9.8 10^3/uL (4.0-10.5)
--- NOTE | 2019-12-17 12:36 | CDI QUERY ---
CDI Query CDI Review: DEAR PROVIDER, PLEASE DOCUMENT IN PROGRESS NOTES IF YOU AGREE WITH THE CLINICAL FINDINGS ABLA ACUTE BLOOD LOSS ANEMIA? ANEMIA UNSPECIFIED OTHER CLINICAL INDICATORS / MD NOTES: PT RECEIVED PRBC TRANSFUSION ONGOING BLEEDING ACUTELY ANEMIC
--- NOTE | 2019-12-17 14:43 | PDOC PROGRESS REPORT ---
Subjective Progress Note for:: 12/17/19 Subjective:: Patient states that his abdominal pain feels better. Has not had any recurrence of hematemesis since procedure was done. Reason For Visit: HEMATEMESIS,ACUTE UPPER GI BLEED Physical Exam Vital Signs: Temp Pulse Resp BP Pulse Ox 98.8 F 85 17 139/75 H 96 12/17/19 13:15 12/17/19 13:15 12/17/19 13:15 12/17/19 13:15 12/17/19 13:15 Intake & Output 12/16/19 12/17/19 12/18/19 06:59 06:59 06:59 Intake Total 3350 700 Balance 3350 700 Weight 77.6 kg General appearance: PRESENT: no acute distress, cooperative Neck exam: ABSENT: JVD Respiratory exam: PRESENT: clear to auscultation varsha, unlabored. ABSENT: tachypnea, wheezes Cardiovascular exam: PRESENT: RRR, +S1, +S2. ABSENT: tachycardia GI/Abdominal exam: PRESENT: soft. ABSENT: rebound, rigid, tenderness Neurological exam: PRESENT: alert, awake, oriented to person, oriented to place, oriented to time Results Laboratory Results: 12/17/19 11:52 12/17/19 06:09 12/16/19 12/16/19 12/16/19 19:36 19:36 19:36 WBC 9.0 RBC 2.59 L Hgb 7.5 L Hct 23.2 L MCV 90 MCH 29.0 MCHC 32.3 RDW 16.9 H Plt Count 269 Seg Neutrophils % 74.6 Sodium 136.1 L Potassium 3.4 L Chloride 112 H Carbon Dioxide 15 L Anion Gap 9 BUN 17 Creatinine 0.56 Est GFR ( Amer) > 60 Glucose 77 Calcium 6.5 L* Magnesium Total Bilirubin 0.1 L AST 16 L Alkaline Phosphatase 26 L Total Protein 4.3 L Albumin 1.9 L Triglycerides Cholesterol LDL Cholesterol Direct VLDL Cholesterol HDL Cholesterol TSH Stool Occult Blood Blood Type A POSITIVE Antibody Screen NEGATIVE 12/17/19 12/17/19 12/17/19 00:15 03:15 06:09 WBC 11.7 H 10.3 RBC 3.74 L 3.50 L Hgb 11.0 L D 10.2 L Hct 32.3 L 30.4 L MCV 86 D 87 MCH 29.5 29.0 MCHC 34.2 33.4 RDW 15.8 H 15.7 H Plt Count 296 270 Seg Neutrophils % Sodium Potassium Chloride Carbon Dioxide Anion Gap BUN Creatinine Est GFR ( Amer) Glucose Calcium Magnesium Total Bilirubin AST Alkaline Phosphatase Total Protein Albumin Triglycerides Cholesterol LDL Cholesterol Direct VLDL Cholesterol HDL Cholesterol TSH Stool Occult Blood POSITIVE Blood Type Antibody Screen 12/17/19 12/17/19 12/17/19 06:09 06:09 11:52 WBC 9.8 RBC 3.09 L Hgb 9.2 L Hct 26.9 L MCV 87 MCH 29.7 MCHC 34.1 RDW 16.4 H Plt Count 264 Seg Neutrophils % Sodium 139.3 Potassium 4.0 Chloride 111 H Carbon Dioxide 25 D Anion Gap 3 L BUN 25 H Creatinine 0.77 Est GFR ( Amer) > 60 Glucose 88 Calcium 8.3 L Magnesium 1.9 Total Bilirubin 0.4 AST 19 Alkaline Phosphatase 44 Total Protein 5.6 L Albumin 2.8 L Triglycerides 259 H Cholesterol 108.68 LDL Cholesterol Direct 45 VLDL Cholesterol 51.8 H HDL Cholesterol 39 L TSH 0.68 Stool Occult Blood Blood Type Antibody Screen Impressions: Abdomen Ultrasound 12/16/19 20:23 IMPRESSION: Unremarkable right upper quadrant ultrasound. Assessment and Plan - Diagnosis (1) Acute upper GI hemorrhage Is this a current diagnosis for this admission?: Yes Plan: EGD done 12/17/2019 revealing moderate sized gastric ulcer [suspected to be the source of bleeding though not bleeding at the time of procedure] and moderate duodenitis. Biopsy taken. Continue Protonix IV twice daily Carafate Monitor vital signs closely Clear liquid diet Advised to avoid all NSAIDs (2) Gastric ulcer Qualifiers: Gastric ulcer chronicity: unspecified ulcer chronicity Gastric ulcer complication status: unspecified whether hemorrhage or perforation present Qualified Code(s): K25.9 - Gastric ulcer, unspecified as acute or chronic, without hemorrhage or perforation Is this a current diagnosis for this admission?: Yes Plan: Plan as in problem #1 (3) Duodenitis Is this a current diagnosis for this admission?: Yes Plan: Plan as per problem #1 (4) Anemia due to blood loss, acute Is this a current diagnosis for this admission?: Yes Plan: Received blood transfusion 1 units in the ER. Will monitor H&H repeat CBC in the morning. - Time Time Spent with patient: Less than 15 minutes
[2019-12-18] MEDS: NORMAL SALINE 1000 ML 1,000 ML IV PRN (06:01)
[2019-12-18 06:34] LABS: HEMATOCRIT 26.7 % (37.9-51.0); HEMOGLOBIN 9.1 g/dL (13.5-17.0); MEAN CORPUSCULAR HEMOGLOBIN 29.8 pg (27.0-33.4); MEAN CORPUSCULAR HGB CONC 34.1 g/dL (32.0-36.0); MEAN CORPUSCULAR VOLUME 87 fl (80-97); PLATELET COUNT 285 10^3/uL (150-450); RED BLOOD COUNT 3.06 10^6/uL (4.35-5.55); RED CELL DISTRIBUTION WIDTH 16.4 % (11.5-14.0); WHITE BLOOD COUNT 7.9 10^3/uL (4.0-10.5)
[2019-12-18] MEDS: SUCRALFATE 1 GM TABLET PO SCH ×2 (09:12→12:03)
[2019-12-18] MEDS: PANTOPRAZOLE SODIUM 40 MG VIAL IV SCH (09:12)
[2019-12-18] MEDS ORDERED: HYDROCHLOROTHIAZIDE 25 MG TABLET PO SCH (10:00)
--- NOTE | 2019-12-18 11:16 | PDOC DISCHARGE SUMMARY ---
Impression - Admit/DC Date/PCP Admission Date/Primary Care Provider: 12/16/19 22:03 [facility] Discharge Date: 12/18/19 - Discharge Diagnosis (1) Acute upper GI hemorrhage Is this a current diagnosis for this admission?: Yes (2) Gastric ulcer Is this a current diagnosis for this admission?: Yes (3) Duodenitis Is this a current diagnosis for this admission?: Yes (4) Anemia due to blood loss, acute Is this a current diagnosis for this admission?: Yes - Additional Information Resuscitation Status: Full Code Discharge Diet: Regular Discharge Activity: Activity As Tolerated [facility]errals: [facility] [Primary Care Provider] - 12/26/19 1:00 pm Prescriptions: Sucralfate [Carafate 1 gm Tablet] 1 gm PO QID 30 Days #120 tablet Omeprazole 40 mg PO QAM #30 capsule.dr Alvarado Medications: Hydrochlorothiazide [Hydrodiuril 25 mg Tablet] 25 mg PO DAILY 09/08/18 Albuterol Sulfate [Proair HFA Inhalation Aerosol 8.5 gm MDI] 2 puff IH Q6 PRN 12/17/19 Ferrous Gluconate 325 mg PO DAILY 12/17/19 Ipratropium/Albuterol Sulfate [Combivent Respimat 4 gm Mdi] 1 puff IH QID 12/17/19 Ipratropium/Albuterol Sulfate [Duoneb 3 ml Ampul] 3 ml NEB DAILY 12/17/19 Omeprazole 40 mg PO QAM #30 capsule. 12/18/19 Sucralfate [Carafate 1 gm Tablet] 1 gm PO QID 30 Days #120 tablet 12/18/19 History of Present Illiness History of Present Illness: KWABENA OJEDA is a 64 year old male who presented the emergency room with acute hematemesis. He admits the onset of mild constant nonradiating sharp epigastric abdominal pain on the night prior to admission. The pain gradually worsened to a moderate intensity by morning, was accompanied by nausea and one large emesis of bright red blood with moderate relief of the pain. The patient admits associated dark tarry stools for the last 3 days. He denies other associated or accompanying signs and symptoms. He admits a remote prior similar episode. He has not identified any additional aggravating or ameliorating factors for his hematemesis. In the emergency room he was found to be mildly tachycardic, mildly hypotensive and acutely anemic. He received red blood cell transfusions and IV fluids with resolution of his symptoms. He was subsequently admitted to the hospital for further evaluation and treatment. Hospital Course Hospital Course: Patient was admitted for evaluation of suspected upper GI bleed. On presentation, he was hemodynamically stable but tachycardic. He was also experi encing epigastric pain. Hemoglobin was 7.5. Coagulation studies was unremarkable. Patient was given a blood transfusion in the ER and received 1 unit of packed red blood cells with improvement of his hemoglobin level to around 9. Patient was started on IV Protonix. Upper endoscopy was performed which revealed moderate sized gastric ulcer [suspected to be the source of bleeding though not bleeding at the time of procedure] and moderate duodenitis. Biopsy was taken and patient was instructed to follow-up with the medical record department for the results. Patient has been placed on PPI and Carafate and advised to avoid all NSAIDs. This morning, his abdominal pain has mostly resolved and he has not had any recurrent episode of bleeding since his upper endoscopy. His vitals are stable this morning and his hemoglobin has held steady as well. He is currently safe for discharge and has been scheduled for a follow-up appointment with the [place] for further management. Physical Exam Vital Signs: Temp Pulse Resp BP Pulse Ox 98.7 F 70 17 103/52 L 92 12/18/19 07:14 12/18/19 07:14 12/18/19 07:14 12/18/19 07:14 12/18/19 07:14 Intake & Output 12/17/19 12/18/19 12/19/19 06:59 06:59 06:59 Intake Total 3350 4210 Output Total 1200 Balance 3350 3010 Weight 77.6 kg 77.6 kg General appearance: PRESENT: no acute distress, cooperative Neck exam: ABSENT: JVD Respiratory exam: PRESENT: unlabored. ABSENT: accessory muscle use, retraction GI/Abdominal exam: PRESENT: soft. ABSENT: tenderness Neurological exam: PRESENT: alert, awake Results Laboratory Results: WBC 7.9 10^3/uL (4.0-10.5) 12/18/19 05:44 RBC 3.06 10^6/uL (4.35-5.55) L 12/18/19 05:44 Hgb 9.1 g/dL (13.5-17.0) L 12/18/19 05:44 Hct 26.7 % (37.9-51.0) L 12/18/19 05:44 MCV 87 fl (80-97) 12/18/19 05:44 MCH 29.8 pg (27.0-33.4) 12/18/19 05:44 MCHC 34.1 g/dL (32.0-36.0) 12/18/19 05:44 RDW 16.4 % (11.5-14.0) H 12/18/19 05:44 Plt Count 285 10^3/uL (150-450) 12/18/19 05:44 Lymph % (Auto) 18.4 % (13-45) 12/16/19 19:36 Edgar % (Auto) 5.1 % (3-13) 12/16/19 19:36 Eos % (Auto) 1.2 % (0-6) 12/16/19 19:36 Baso % (Auto) 0.7 % (0-2) 12/16/19 19:36 Absolute Neuts (auto) 6.7 10^3/uL (1.7-8.2) 12/16/19 19:36 Absolute Lymphs (auto) 1.6 10^3/uL (0.5-4.7) 12/16/19 19:36 Absolute Monos (auto) 0.5 10^3/uL (0.1-1.4) 12/16/19 19:36 Absolute Eos (auto) 0.1 10^3/uL (0.0-0.6) 12/16/19 19:36 Absolute Basos (auto) 0.1 10^3/uL (0.0-0.2) 12/16/19 19:36 Seg Neutrophils % 74.6 % (42-78) 12/16/19 19:36 PT 14.8 SEC (11.4-15.4) 12/17/19 06:09 INR 1.15 12/17/19 06:09 APTT 24.7 SEC (23.5-35.8) 12/16/19 19:36 Sodium 139.3 mmol/L (137-145) 12/17/19 06:09 Potassium 4.0 mmol/L (3.6-5.0) 12/17/19 06:09 Chloride 111 mmol/L (98-107) H 12/17/19 06:09 Carbon Dioxide 25 mmol/L (22-30) D 12/17/19 06:09 Anion Gap 3 (5-19) L 12/17/19 06:09 BUN 25 mg/dL (7-20) H 12/17/19 06:09 Creatinine 0.77 mg/dL (0.52-1.25) 12/17/19 06:09 Est GFR ( Amer) > 60 (>60) 12/17/19 06:09 Est GFR (MDRD) Non-Af > 60 (>60) 12/17/19 06:09 Glucose 88 mg/dL (75-110) 12/17/19 06:09 POC Glucose 133 mg/dL (70-110) H 12/16/19 19:31 Calcium 8.3 mg/dL (8.4-10.2) L 12/17/19 06:09 Magnesium 1.9 mg/dL (1.6-2.3) 12/17/19 06:09 Total Bilirubin 0.4 mg/dL (0.2-1.3) 12/17/19 06:09 Direct Bilirubin 0.0 mg/dL (0.0-0.4) 12/17/19 06:09 Neonat Total Bilirubin Not Reportable 12/17/19 06:09 Neonat Direct Bilirubin Not Reportable 12/17/19 06:09 Neonat Indirect Bili Not Reportable 12/17/19 06:09 AST 19 U/L (17-59) 12/17/19 06:09 ALT 12 U/L (<50) 12/17/19 06:09 Alkaline Phosphatase 44 U/L (38-126) 12/17/19 06:09 Total Protein 5.6 g/dL (6.3-8.2) L 12/17/19 06:09 Albumin 2.8 g/dL (3.5-5.0) L 12/17/19 06:09 Triglycerides 259 mg/dL (<150) H 12/17/19 06:09 Cholesterol 108.68 mg/dL (0-200) 12/17/19 06:09 LDL Cholesterol Direct 45 mg/dL (<100) 12/17/19 06:09 VLDL Cholesterol 51.8 mg/dL (10-31) H 12/17/19 06:09 HDL Cholesterol 39 mg/dL (>40) L 12/17/19 06:09 TSH 0.68 uIU/mL (0.47-4.68) 12/17/19 06:09 Stool Occult Blood POSITIVE (NEGATIVE) 12/17/19 03:15 Serum Alcohol < 10 mg/dL (NONE DETECTED) 12/16/19 19:36 Blood Type A POSITIVE 12/16/19 19:36 Antibody Screen NEGATIVE 12/16/19 19:36 Crossmatch See Detail 12/16/19 19:36 Impressions: Abdomen Ultrasound 12/16/19 20:23 IMPRESSION: Unremarkable right upper quadrant ultrasound. Plan Time Spent: Less than 30 Minutes Stroke Is this a Stroke Patient?: No Acute Heart Failure - Is this a Heart Failure Patient?: No
[2019-12-18 12:34] VITALS: BP 120/68
== END 2019-12-18 15:04 | disposition home or self-care (01) | DRG 378 ==
LOC: ER 18:59 → EH 22:03 → 4S 23:10
PROVIDERS: ADMIT Emergency Medicine; ATTEND Registered Nurse
PROC: 30233N1 Transfusion of Nonautologous Red Blood Cells into Peripheral Vein, Percutaneous Approach (ICD-10-PCS; 2019-12-16)
PROC: 0DB68ZX Excision of Stomach, Via Natural or Artificial Opening Endoscopic, Diagnostic (ICD-10-PCS; principal; 2019-12-17 08:30)
DX: K25.0 Acute gastric ulcer with hemorrhage (principal); D62 Acute posthemorrhagic anemia; K29.81 Duodenitis with bleeding; E78.5 Hyperlipidemia, unspecified; I10 Essential (primary) hypertension; J44.9 Chronic obstructive pulmonary disease, unspecified; F10.20 Alcohol dependence, uncomplicated; F17.200 Nicotine dependence, unspecified, uncomplicated; E78.00 Pure hypercholesterolemia, unspecified; F32.9 Major depressive disorder, single episode, unspecified; Z96.642 Presence of left artificial hip joint; Z79.899 Other long term (current) drug therapy; Z88.0 Allergy status to penicillin
CPT/HCPCS: 36415; 36430; 43239; 731; 76705; 80053; 80061; 80307; 82272; 82962; 83735; 84443; 85025; 85027; 85610; 85730; 86850; 86900; 86901; 86920; 88305; 88341; 88342; 93005; 93010; 96360; 99291; C9113; J2704; J3490; J7030; P9016

== ENCOUNTER 2019-12-24 16:36 | Inpatient (IN) | payer OTHER, MEDICARE ==
--- NOTE | 2019-12-24 16:49 | ER Document Report ---
ED Medical Screen (RME) - General Stated Complaint: VOMITING BLOOD Time Seen by Provider: 12/24/19 16:46 Primary Care Provider: VERONA SADLER [Primary Care Provider] - Follow up as needed Notes: Patient is a 64-year-old male who presents to the emergency department with a chief complaint of "vomiting up blood." Patient states that he has had a symptoms for the past 8 days. Exam: Soft, mildly tender abdomen. I have greeted and performed a rapid initial assessment of this patient. A comprehensive ED assessment and evaluation of the patient, analysis of test results and completion of medical decision making process will be conducted by a n additional ED providers. TRAVEL OUTSIDE OF THE [place] IN LAST 30 DAYS: No - Related Data Allergies/Adverse Reactions: Penicillins Allergy (Verified 09/08/18 10:20) Past Medical History - Past Medical History Cardiac Medical History: Reports: Hx Hypercholesterolemia, Hx Hypertension Denies: Hx Atrial Fibrillation, Hx Congestive Heart Failure, Hx Coronary Artery Disease, Hx Heart Attack Pulmonary Medical History: Reports: Hx Asthma, Hx COPD, Hx Respiratory Failure Neurological Medical History: Denies: Hx Seizures Endocrine Medical History: Denies: Hx Diabetes Mellitus Type 1, Hx Diabetes Mellitus Type 2, Hx Hyperthyroidism, Hx Hypothyroidism Renal/ Medical History: Denies: Hx Peritoneal Dialysis GI Medical History: Denies: Hx Cirrhosis, Hx Crohn's Disease, Hx Gastroesophageal Reflux Disease, Hx Hepatitis, Hx Ulcerative Colitis Musculoskeltal Medical History: Reports Hx Arthritis - Takes diclofenac for arthritis and back pain relief, Denies Hx Gout Skin Medical History: Denies Hx Eczema, Denies Hx Psoriasis Psychiatric Medical History: Reports: Hx Depression Infectious Medical History: Denies: Hx Hepatitis Past Surgical History: Reports: Hx Herniorrhaphy, Hx Orthopedic Surgery - left thr, Other - 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 Doctor's Discharge - Discharge Referrals: DOROTEO,VERONA [Primary Care Provider] - Follow up as needed
[2019-12-24] MEDS ORDERED: ONDANSETRON HCL INJ/PF 4 MG/2 ML SDV IV ONE (17:16)
[2019-12-24] MEDS ORDERED: NORMAL SALINE 1000 ML 1,000 ML IV ONE (17:16)
[2019-12-24] MEDS ORDERED: PANTOPRAZOLE SODIUM 40 MG VIAL IV ONE (17:17)
[2019-12-24 17:30] LABS: ABSOLUTE BASOPHILS # (AUTO) 0.1 10^3/uL (0.0-0.2); ABSOLUTE EOSINOPHILS # (AUTO) 0.1 10^3/uL (0.0-0.6); ABSOLUTE LYMPHOCYTES (AUTO) 1.9 10^3/uL (0.5-4.7); ABSOLUTE MONOCYTES (AUTO) 0.8 10^3/uL (0.1-1.4); ABSOLUTE NEUT (AUTO) 7.8 10^3/uL (1.7-8.2); BASOPHILS % (AUTO) 0.7 % (0-2); EOSINOPHILS % (AUTO) 0.6 % (0-6); HEMATOCRIT 16.4 % (37.9-51.0); LYMPHOCYTES % (AUTO) 18.1 % (13-45); MEAN CORPUSCULAR HEMOGLOBIN 30.1 pg (27.0-33.4); MEAN CORPUSCULAR HGB CONC 34.3 g/dL (32.0-36.0); MEAN CORPUSCULAR VOLUME 88 fl (80-97); MONOCYTES % (AUTO) 7.4 % (3-13); PLATELET COUNT 484 10^3/uL (150-450); RED BLOOD COUNT 1.86 10^6/uL (4.35-5.55); RED CELL DISTRIBUTION WIDTH 16.6 % (11.5-14.0); SEGMENTED NEUTROPHILS % (AUTO) 73.2 % (42-78); TOTAL CELLS COUNTED % (AUTO) 100 %; WHITE BLOOD COUNT 10.7 10^3/uL (4.0-10.5)
[2019-12-24 17:33] LABS: HEMOGLOBIN 5.6 g/dL (13.5-17.0)
[2019-12-24] MEDS ORDERED: NORMAL SALINE 250 ML IV PRN ×3 (17:35→18:29)
[2019-12-24 17:37] LABS: INTERNATIONAL RATION (INR) 1.25; PROTHROMBIN TIME 15.8 SEC (11.4-15.4)
[2019-12-24 17:54] LABS: ALKALINE PHOSPHATASE 41 U/L (38-126); ANION GAP 6 (5-19); ASPARTATE AMINO TRANSFERASE 14 U/L (17-59); BILIRUBIN,TOTAL 0.1 mg/dL (0.2-1.3); BLOOD UREA NITROGEN 15 mg/dL (7-20); CALCIUM 8.7 mg/dL (8.4-10.2); CARBON DIOXIDE 27 mmol/L (22-30); CHLORIDE 106 mmol/L (98-107); GLUCOSE 110 mg/dL (75-110); POTASSIUM 3.7 mmol/L (3.6-5.0); TOTAL PROTEIN 5.8 g/dL (6.3-8.2)
--- NOTE | 2019-12-24 17:57 | ER Document Report ---
ED General - General Chief Complaint: Nausea/Vomiting Stated Complaint: VOMITING BLOOD Time Seen by Provider: 12/24/19 16:46 Primary Care Provider: [facility] [Primary Care Provider] - Follow up as needed Mode of Arrival: Medic Information source: Patient TRAVEL OUTSIDE OF THE [place] IN LAST 30 DAYS: No - HPI Notes: Patient presents with bright red blood per rectum. He states he was recently admitted with a complaint of vomiting blood. Records do show the patient was recently admitted for an upper GI bleed. He had a biopsy at that time which showed a questionable lymphoma. He also had evidence of an ulcer in the stomach. Today he states he has some nausea and some dull pain in the epigastric area. This pain is constant it is moderate in intensity. Nothing makes it better or worse. It does not radiate. He has not vomited any more blood. He states his stools have been somewhat dark and bright red blood this morning. He does feel weak as well. - Related Data Allergies/Adverse Reactions: Penicillins Allergy (Verified 09/08/18 10:20) Past Medical History - General Information source: Patient - Social History Smoking Status: Current Every Day Smoker Frequency of alcohol use: None Drug Abuse: None Family History: CAD, DM, Hypertension, Malignancy Patient has suicidal ideation: No Patient has homicidal ideation: No - Past Medical History Cardiac Medical History: Reports: Hx Hypercholesterolemia, Hx Hypertension Denies: Hx Atrial Fibrillation, Hx Congestive Heart Failure, Hx Coronary Evelyn ry Disease, Hx Heart Attack Pulmonary Medical History: Reports: Hx Asthma, Hx COPD, Hx Respiratory Failure Neurological Medical History: Denies: Hx Seizures Endocrine Medical History: Denies: Hx Diabetes Mellitus Type 1, Hx Diabetes Mellitus Type 2, Hx Hyperthyroidism, Hx Hypothyroidism Renal/ Medical History: Denies: Hx Peritoneal Dialysis GI Medical History: Denies: Hx Cirrhosis, Hx Crohn's Disease, Hx Gastroesophageal Reflux Disease, Hx Hepatitis, Hx Ulcerative Colitis Musculoskeletal Medical History: Reports Hx Arthritis - Takes diclofenac for arthritis and back pain relief, Denies Hx Gout Skin Medical History: Denies Hx Eczema, Denies Hx Psoriasis Psychiatric Medical History: Reports: Hx Depression Infectious Medical History: Denies: Hx Hepatitis Past Surgical History: Reports: Hx Herniorrhaphy, Hx Orthopedic Surgery - left thr, Other - 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 - Immunizations Hx Pneumococcal Vaccination: 06/15/16 Review of Systems - Review of Systems Constitutional: denies: Chills, Fever Cardiovascular: denies: Chest pain, Dyspnea Respiratory: denies: Cough, Short of breath -: Yes All other systems reviewed and negative Physical Exam - Vital signs Vitals: Temp Pulse Resp BP Pulse Ox 98.8 F 100 19 107/60 96 12/24/19 16:41 12/24/19 16:41 12/24/19 16:41 12/24/19 16:41 12/24/19 16:41 Interpretation: Normal - General General appearance: Appears well, Alert - HEENT Head: Normocephalic, Atraumatic Eyes: Normal Pupils: PERRL - Respiratory Respiratory status: No respiratory distress Chest status: Nontender Breath sounds: Normal Chest palpation: Normal - Cardiovascular Rhythm: Regular Heart sounds: Normal auscultation Murmur: No - Abdominal Inspection: Normal Distension: No distension Bowel sounds: Normal Tenderness: Tender - mild epigastric Organomegaly: No organomegaly - Back Back: Normal, Nontender - Extremities General upper extremity: Normal inspection, Nontender, Normal color, Normal ROM, Normal temperature General lower extremity: Normal inspection, Nontender, Normal color, Normal ROM, Normal temperature, Normal weight bearing. No: Anabel's sign - Neurological Neuro grossly intact: Yes Cognition: Normal Orientation: AAOx4 Han Coma Scale Eye Opening: Spontaneous Hampton Coma Scale Verbal: Oriented Han Coma Scale Motor: Obeys Commands Hampton Coma Scale Total: 15 Speech: Normal Motor strength normal: LUE, RUE, LLE, RLE Sensory: Normal - Psychological Associated symptoms: Normal affect, Normal mood - Skin Skin Temperature: Warm Skin Moisture: Dry Skin Color: Normal Course - Vital Signs Vital signs: Temp Pulse Resp BP Pulse Ox 98.8 F 100 24 H 108/63 98 12/24/19 16:41 12/24/19 16:41 12/24/19 17:16 12/24/19 17:16 12/24/19 17:02 - Laboratory Result Diagrams: 12/24/19 17:11 12/24/19 17:11 Laboratory results interpreted by me: 12/24/19 12/24/19 12/24/19 17:11 17:11 17:11 WBC 10.7 H RBC 1.86 L Hgb 5.6 L Hct 16.4 L RDW 16.6 H Plt Count 484 H PT 15.8 H Total Bilirubin 0.1 L AST 14 L Total Protein 5.8 L Albumin 3.0 L Crossmatch 12/24/19 17:11 WBC RBC Hgb Hct RDW Plt Count PT Total Bilirubin AST Total Protein Albumin Crossmatch See Detail Critical Care Note - Critical Care Note Total time excluding time spent on procedures (mins): 50 Comments: Approximately 50 minutes of critical care time were spent managing this riya mayer's lower GI bleed with anemia. This time was spent with multiple reassessments. It was spent reviewing old records. It was spent talking to multiple consultants. Discharge - Discharge Clinical Impression: Lower GI bleed Anemia Qualifiers: Anemia type: iron deficiency Iron deficiency anemia type: chronic blood loss Qualified Code(s): D50.0 - Iron deficiency anemia secondary to blood loss (chronic) Condition: Serious Disposition: ADMITTED INPATIENT Admitting Provider: Jesus (Hospitalist) Unit Admitted: [facility]errals: [facility] [Primary Care Provider] - Follow up as needed
--- NOTE | 2019-12-24 18:05 | EKG REPORT ---
SEVERITY:- NORMAL ECG - SINUS RHYTHM : Confirmed by: Checo Sosa 24-Dec-2019 18:04:12
[2019-12-24] MEDS ORDERED: MORPHINE SULFATE 10 MG/ML INJ IV PRN (18:30)
--- NOTE | 2019-12-24 18:40 | PDOC H&P ---
History of Present Illness Admission Date/PCP: 12/24/19 18:25 [place] [facility] Patient complains of: Nausea vomiting from yesterday and passing black-colored stools from this morning History of Present Illness: KWABENA OJEDA is a 64 year old male with history of chronic smoking, hypertension recent admission for GI bleed status post endoscopy found to have a gastric ulcer biopsy reports are pending. According to the patient is not feeling well since yesterday has nausea vomited dark-colored material yesterday and this morning positive dark-colored stool in association with the bright- colored blood and came to the emergency room for further evaluation. He is also complaining of mild abdominal pain. Denies any falls denies any headaches denies any dizzy spells. Hemoglobin is found to be 5.6 at the time of discharge few days ago hemoglobin is 9.1. Patient wants to be a DNR/DNI. Consultation with Dr. Pierre was requested plan is to give 3 units of PRBC. Past Medical History Cardiac Medical History: Reports: Hyperlipidema, Hypertension Denies: Atrial Fibrillation, Congestive Heart Failure, Coronary Artery Disease, Myocardial Infarction Pulmonary Medical History: Reports: Asthma, Chronic Obstructive Pulmonary Disease (COPD), Respiratory Failure Neurological Medical History: Denies: Seizures Endocrine Medical History: Denies: Diabetes Mellitus Type 1, Diabetes Mellitus Type 2, Hyperthyroidism, Hypothyroidism GI Medical History: Denies: Cirrhosis, Crohn's Disease, Gastroesophageal Reflux Disease, Hepatitis, Ulcerative Colitis Musculoskeltal Medical History: Reports: Arthritis - Takes diclofenac for arthritis and back pain relief Denies: Gout Skin Medical History: Denies: Eczema, Psoriasis Psychiatric Medical History: Reports: Depression Hematology: Denies: Anemia, Bleeding Tendencies Past Surgical History Past Surgical History: Reports: Herniorrhaphy, Orthopedic Surgery - left thr, Other - 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 Social History Information Source: Patient Smoking Status: Current Every Day Smoker Frequency of Alcohol Use: Rare Hx Recreational Drug Use: Yes Drugs: Marijuana - Helps with his back pain Hx Prescription Drug Abuse: No - Advance Directive Resuscitation Status: Do Not Resuscitate Family History Family History: CAD, DM, Hypertension, Malignancy Parental Family History Reviewed: No - Coronary artery disease Children Family History Reviewed: No Sibling(s) Family History Reviewed.: No Medication/Allergy Home Medications: Hydrochlorothiazide [Hydrodiuril 25 mg Tablet] 25 mg PO DAILY 09/08/18 Albuterol Sulfate [Proair HFA Inhalation Aerosol 8.5 gm MDI] 2 puff IH Q6 PRN 12/17/19 Ferrous Gluconate 325 mg PO DAILY 12/17/19 Ipratropium/Albuterol Sulfate [Combivent Respimat 4 gm Mdi] 1 puff IH QID 12/17/19 Ipratropium/Albuterol Sulfate [Duoneb 3 ml Ampul] 3 ml NEB DAILY 12/17/19 Omeprazole 40 mg PO QAM #30 capsule. 12/18/19 Sucralfate [Carafate 1 gm Tablet] 1 gm PO QID 30 Days #120 tablet 12/18/19 Allergies/Adverse Reactions: Penicillins Allergy (Verified 09/08/18 10:20) Review of Systems Constitutional: ABSENT: fever(s) Eyes: ABSENT: visual disturbances Ears: ABSENT: hearing changes Nose, Mouth, and Throat: ABSENT: sore throat Cardiovascular: PRESENT: dyspnea on exertion. ABSENT: edema, orthropnea, palpitations Respiratory: PRESENT: dyspnea Gastrointestinal: PRESENT: abdominal pain, coffee ground emesis, nausea, vomiting, other - Passing black-colored stool Genitourinary: ABSENT: dysuria, hematuria Musculoskeletal: ABSENT: joint swelling Neurological: ABSENT: abnormal gait, abnormal speech, confusion, dizziness, focal weakness, syncope Psychiatric: ABSENT: anxiety, depression, homidical ideation, suicidal ideation Endocrine: ABSENT: cold intolerance, heat intolerance, polydipsia, polyuria Physical Exam Vital Signs: Temp Pulse Resp BP Pulse Ox 98.8 F 100 24 H 108/63 98 12/24/19 16:41 12/24/19 16:41 12/24/19 17:16 12/24/19 17:16 12/24/19 17:02 Intake & Output 12/23/19 12/24/19 12/25/19 06:59 06:59 06:59 Weight 74.1 kg General appearance: PRESENT: no acute distress, well-developed Head exam: PRESENT: atraumatic Eye exam: PRESENT: conjunctiva pale, PERRLA Mouth exam: PRESENT: moist, neck supple, tongue midline Neck exam: ABSENT: carotid bruit, JVD, lymphadenopathy, thyromegaly Respiratory exam: PRESENT: decreased breath sounds Cardiovascular exam: PRESENT: RRR. ABSENT: diastolic murmur, rubs, systolic murmur GI/Abdominal exam: PRESENT: normal bowel sounds, soft. ABSENT: distended, guarding, mass, organolmegaly, rebound, tenderness Rectal exam: PRESENT: heme (+) stool Extremities exam: PRESENT: full ROM. ABSENT: calf tenderness, clubbing, pedal edema Neurological exam: PRESENT: alert, awake, oriented to person, oriented to place, oriented to time, oriented to situation, CN II-XII grossly intact. ABSENT: motor sensory deficit Psychiatric exam: PRESENT: appropriate affect, normal mood. ABSENT: homicidal ideation, suicidal ideation Results Laboratory Results: 12/24/19 17:11 12/24/19 17:11 12/24/19 12/24/19 17:11 17:11 WBC 10.7 H RBC 1.86 L Hgb 5.6 L Hct 16.4 L MCV 88 MCH 30.1 MCHC 34.3 RDW 16.6 H Plt Count 484 H Seg Neutrophils % 73.2 Sodium 138.5 Potassium 3.7 Chloride 106 Carbon Dioxide 27 Anion Gap 6 BUN 15 Creatinine 0.67 Est GFR ( Amer) > 60 Glucose 110 Calcium 8.7 Total Bilirubin 0.1 L AST 14 L Alkaline Phosphatase 41 Total Protein 5.8 L Albumin 3.0 L Lipase 55.8 Assessment and Plan - Diagnosis (1) GI bleed Is this a current diagnosis for this admission?: Yes Plan: 12/24/2019-patient is going to be admitted to [facility] as an inpatient. Admitting diagnosis is GI bleed. Most likely upper GI bleed. To keep the patient n.p.o., IV Protonix 40 mg daily. DVT prophylaxis with JOSE L hoses. To type and crossmatch and transfuse 3 units. To check for posttransfusion CBC. Consultation with Dr. Pierre was twisted and case was discussed with him. Started on IV fluids normal saline 75 cc/h. And is expressing desire to be DNR/DNI. Karoline had endoscopy was done suspicious for lymphoma biopsy results are pending. (2) Gastric ulcer Qualifiers: Gastric ulcer chronicity: unspecified ulcer chronicity Gastric ulcer complication status: unspecified whether hemorrhage or perforation present Qualified Code(s): K25.9 - Gastric ulcer, unspecified as acute or chronic, without hemorrhage or perforation Is this a current diagnosis for this admission?: No Plan: 12/24/2019-patient has EGD few days ago found to have a gastric ulcer. Biopsy reports are pending. Started on IV Protonix 40 mg daily, n.p.o. and to give 3 units of PRBC tonight. (3) HTN (hypertension) Qualifiers: Hypertension type: unspecified Qualified Code(s): I10 - Essential (primary) hypertension Is this a current diagnosis for this admission?: No Plan: 12/24/2019-patient has history of chronic essential hypertension blood pressure is running low in the ER latest blood pressure is 108/63. To hold antihypertensives started on normal saline at 75 cc/h. And he is going to receive 3 units of PRBC. (4) Tobacco abuse Is this a current diagnosis for this admission?: No Plan: 12/24/2019-patient is a daily day smoker smoking counseling was provided for more than 30 minutes. Offered nicotine patches. (5) DNR (do not resuscitate) Is this a current diagnosis for this admission?: Yes Plan: 12/24/2019-patient expresses desire to be DNR/DNI.
--- NOTE | 2019-12-24 19:39 | PDOC CONSULTATION ---
Consultation Consult Date: 12/24/19 Provider Consulted: SURGICAL SURGICALIST Consult reason:: upper GI bleeding History of Present Illness Admission Date/PCP: 12/24/19 18:25 [place] [facility] Patient complains of: hematemesis History of Present Illness: KWABENA OJEDA is a 64 year old male seen at the request of the hospitalist service. This is a patient recently admitted to hospital, who underwent upper endoscopy. The patient was found to have a large, broad-based ulcer in the stomach. At the time of his endoscopy, there was no active bleeding. The patient received a transfusion, and was sent home several days later. The patient reports weakness and lethargy at home. He also reports vomiting "red blood" last night and this morning. He has had several melanotic stools today. He reports weakness and fatigue, as well as dizziness. He denies chest pain, shortness of breath, fevers, chills, cough, easy bruising/bleeding, headache. The patient denies any recent alcohol consumption. He reports that he has been taking his Carafate and Protonix at home, as prescribed. Past Medical History Cardiac Medical History: Reports: Hyperlipidema, Hypertension Denies: Atrial Fibrillation, Congestive Heart Failure, Coronary Artery Disease, Myocardial Infarction Pulmonary Medical History: Reports: Asthma, Chronic Obstructive Pulmonary Disease (COPD), Respiratory Failure Neurological Medical History: Denies: Seizures Endocrine Medical History: Denies: Diabetes Mellitus Type 1, Diabetes Mellitus Type 2, Hyperthyroidism, Hypothyroidism GI Medical History: Denies: Cirrhosis, Crohn's Disease, Gastroesophageal Reflux Disease, Hepatitis, Ulcerative Colitis Musculoskeltal Medical History: Reports: Arthritis - Takes diclofenac for arthritis and back pain relief Denies: Gout Skin Medical History: Denies: Eczema, Psoriasis Psychiatric Medical History: Reports: Depression Hematology: Denies: Anemia, Bleeding Tendencies Past Surgical History Past Surgical History: Reports: Herniorrhaphy, Orthopedic Surgery - left thr, Other - 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 Social History Smoking Status: Current Every Day Smoker Frequency of Alcohol Use: Rare Hx Recreational Drug Use: Yes Drugs: Marijuana - Helps with his back pain Hx Prescription Drug Abuse: No - Advance Directive Resuscitation Status: Do Not Resuscitate Family History Family History: CAD, DM, Hypertension, Malignancy Parental Family History Reviewed: Yes Children Family History Reviewed: Yes Sibling(s) Family History Reviewed.: Yes Medication/Allergy Home Medications: Hydrochlorothiazide [Hydrodiuril 25 mg Tablet] 25 mg PO DAILY 09/08/18 Albuterol Sulfate [Proair HFA Inhalation Aerosol 8.5 gm MDI] 2 puff IH Q6HP PRN 12/17/19 Ipratropium/Albuterol Sulfate [Combivent Respimat 4 gm Mdi] 1 puff IH QID 12/17/19 Ipratropium/Albuterol Sulfate [Duoneb 3 ml Ampul] 3 ml NEB [id number] PRN 12/17/19 Omeprazole 40 mg PO QAM #30 capsule. 12/18/19 Sucralfate [Carafate 1 gm Tablet] 1 gm PO QID 30 Days #120 tablet 12/18/19 Allergies/Adverse Reactions: Penicillins Allergy (Verified 09/08/18 10:20) Review of Systems Constitutional: PRESENT: fatigue, weakness. ABSENT: fever(s) Eyes: ABSENT: visual disturbances Ears: ABSENT: hearing changes Nose, Mouth, and Throat: ABSENT: sore throat Cardiovascular: ABSENT: chest pain Respiratory: ABSENT: cough Gastrointestinal: PRESENT: hematemesis, melena, nausea, vomiting. ABSENT: abdominal pain Genitourinary: ABSENT: dysuria Musculoskeletal: PRESENT: back pain Integumentary: ABSENT: pruritus, rash Neurological: ABSENT: confusion, convulsions, dizziness Psychiatric: ABSENT: anxiety, depression Endocrine: ABSENT: cold intolerance, heat intolerance Hematologic/Lymphatic: ABSENT: easy bleeding, easy bruising Physical Exam Vital Signs: Temp Pulse Resp BP Pulse Ox 98.8 F 100 18 104/52 L 100 12/24/19 16:41 12/24/19 16:41 12/24/19 19:01 12/24/19 19:01 12/24/19 19:01 Intake & Output 12/23/19 12/24/19 12/25/19 06:59 06:59 06:59 Weight 74.1 kg General appearance: PRESENT: no acute distress, cooperative, disheveled - Mildly Head exam: PRESENT: atraumatic, normocephalic Eye exam: PRESENT: EOMI, PERRLA. ABSENT: scleral icterus Mouth exam: PRESENT: moist, neck supple Neck exam: ABSENT: meningismus, tenderness, thyromegaly, tracheal deviation, tracheostomy Respiratory exam: PRESENT: unlabored. ABSENT: tachypnea Cardiovascular exam: PRESENT: tachycardia - Mild tachycardia (104) GI/Abdominal exam: PRESENT: soft. ABSENT: distended, firm, rebound, rigid, tenderness Rectal exam: PRESENT: deferred Extremities exam: ABSENT: clubbing Musculoskeletal exam: ABSENT: deformity Neurological exam: PRESENT: alert, awake, oriented to person, oriented to place, CN II-XII grossly intact Psychiatric exam: ABSENT: agitated, anxious, depressed Focused psych exam: ABSENT: delusional Skin exam: ABSENT: cyanosis, erythema, jaundice Results Laboratory Results: 12/24/19 17:11 12/24/19 17:11 12/24/19 12/24/19 12/24/19 17:11 17:11 17:11 WBC 10.7 H RBC 1.86 L Hgb 5.6 L Hct 16.4 L MCV 88 MCH 30.1 MCHC 34.3 RDW 16.6 H Plt Count 484 H Seg Neutrophils % 73.2 Sodium 138.5 Potassium 3.7 Chloride 106 Carbon Dioxide 27 Anion Gap 6 BUN 15 Creatinine 0.67 Est GFR ( Amer) > 60 Glucose 110 Calcium 8.7 Total Bilirubin 0.1 L AST 14 L Alkaline Phosphatase 41 Total Protein 5.8 L Albumin 3.0 L Lipase 55.8 Blood Type A POSITIVE Antibody Screen NEGATIVE Assessment & Plan - Diagnosis (1) Acute upper GI hemorrhage Is this a current diagnosis for this admission?: Yes (2) Anemia due to blood loss, acute Is this a current diagnosis for this admission?: Yes (3) Gastric ulcer Qualifiers: Gastric ulcer chronicity: unspecified ulcer chronicity Gastric ulcer complication status: unspecified whether hemorrhage or perforation present Qualified Code(s): K25.9 - Gastric ulcer, unspecified as acute or chronic, without hemorrhage or perforation Is this a current diagnosis for this admission?: Yes - Plan Summary Plan Summary: This is a 64-year-old male recently admitted for upper GI bleeding. He underwent upper endoscopy and was found to have a large gastric ulcer. There was no active bleeding or visible vessel at that time. The patient reports a recent episode of hematemesis and melena. His hemoglobin has dropped approximately 4 g since his discharge on 12/18/2019. The patient has been admitted by the hospitalist. I agree with their management plan. Patient will require resuscitation. He should continue his Protonix and Carafate. If the patient has continued, uncontrolled bleeding, reevaluation with EGD may be prudent. At this time, the patient appears hemodynamically stable. Continue with resuscitation for now. Reevaluation tomorrow to determine if EGD will be necessary. Surgery will continue to follow this patient very closely with you. If the patient decompensates overnight, he may require urgent/emergent EGD. This has been discussed with the patient and he is in agreement with the treatment plan.
[2019-12-24] MEDS: NORMAL SALINE 1000 ML 1,000 ML IV PRN (20:01)
[2019-12-24] MEDS: PANTOPRAZOLE SODIUM 40 MG VIAL IV SCH (22:40)
[2019-12-25 04:11] LABS: APPEARANCE,URINE CLEAR; BILIRUBIN,URINE NEGATIVE (NEGATIVE); COLOR,URINE YELLOW; GLUCOSE, URINE NEGATIVE (NEGATIVE); KETONES,URINE NEGATIVE (NEGATIVE); LEUKOCYTE ESTERASE,URINE NEGATIVE (NEGATIVE); NITRITE,URINE NEGATIVE (NEGATIVE); PROTEIN,URINE NEGATIVE (NEGATIVE); URINE SPECIFIC GRAVITY 1.016; UROBILINOGEN,URINE NEGATIVE mg/dL (<2.0)
[2019-12-25] MEDS: NORMAL SALINE 1000 ML 1,000 ML IV SCH ×2 (04:59→06:00)
[2019-12-25 08:05] LABS: ABSOLUTE BASOPHILS # (AUTO) 0.1 10^3/uL (0.0-0.2); ABSOLUTE EOSINOPHILS # (AUTO) 0.1 10^3/uL (0.0-0.6); ABSOLUTE LYMPHOCYTES (AUTO) 1.7 10^3/uL (0.5-4.7); ABSOLUTE MONOCYTES (AUTO) 0.7 10^3/uL (0.1-1.4); ABSOLUTE NEUT (AUTO) 7.1 10^3/uL (1.7-8.2); BASOPHILS % (AUTO) 0.6 % (0-2); HEMATOCRIT 24.3 % (37.9-51.0); LYMPHOCYTES % (AUTO) 17.5 % (13-45); MEAN CORPUSCULAR HEMOGLOBIN 29.7 pg (27.0-33.4); MEAN CORPUSCULAR HGB CONC 34.4 g/dL (32.0-36.0); MEAN CORPUSCULAR VOLUME 86 fl (80-97); MONOCYTES % (AUTO) 7.2 % (3-13); PLATELET COUNT 379 10^3/uL (150-450); RED BLOOD COUNT 2.81 10^6/uL (4.35-5.55); RED CELL DISTRIBUTION WIDTH 15.6 % (11.5-14.0); SEGMENTED NEUTROPHILS % (AUTO) 73.7 % (42-78); TOTAL CELLS COUNTED % (AUTO) 100 %; WHITE BLOOD COUNT 9.6 10^3/uL (4.0-10.5)
[2019-12-25 08:06] LABS: HEMOGLOBIN 8.4 g/dL (13.5-17.0)
[2019-12-25 08:12] LABS: PROTHROMBIN TIME 15.2 SEC (11.4-15.4)
[2019-12-25 08:23] LABS: ALBUMIN 2.8 g/dL (3.5-5.0); ALKALINE PHOSPHATASE 38 U/L (38-126); ASPARTATE AMINO TRANSFERASE 16 U/L (17-59); BILIRUBIN,DIRECT 0.2 mg/dL (0.0-0.4); BILIRUBIN,TOTAL 2.1 mg/dL (0.2-1.3); BLOOD UREA NITROGEN 7 mg/dL (7-20); CALCIUM 7.9 mg/dL (8.4-10.2); CHOLESTEROL 105.77 mg/dL (0-200); GLUCOSE 95 mg/dL (75-110); POTASSIUM 3.5 mmol/L (3.6-5.0); TOTAL PROTEIN 5.7 g/dL (6.3-8.2); TRIGLYCERIDES 227 mg/dL (<150)
[2019-12-25 08:27] LABS: CARBON DIOXIDE 26 mmol/L (22-30); CHLORIDE 109 mmol/L (98-107)
[2019-12-25 08:33] LABS: VLDL CHOLESTEROL 45.4 mg/dL (10-31)
[2019-12-25 08:34] LABS: DIRECT LDL 48 mg/dL (<100)
[2019-12-25 09:02] LABS: ANION GAP 3 (5-19)
[2019-12-25] MEDS: PANTOPRAZOLE SODIUM 40 MG VIAL IV SCH ×2 (09:07→22:23)
[2019-12-25] MEDS: NICOTINE 21 MG/24 HR PATCH.TD24 TD SCH (09:07)
--- NOTE | 2019-12-25 09:58 | PDOC PROGRESS REPORT ---
Subjective Progress Note for:: 12/25/19 Subjective:: feels comfortable, no pain had bloody bm eariler this am Reason For Visit: GI BLEED Physical Exam Vital Signs: Temp Pulse Resp BP Pulse Ox 98.0 F 73 18 91/53 L 99 12/25/19 08:56 12/25/19 08:56 12/25/19 08:56 12/25/19 08:56 12/25/19 08:56 Intake & Output 12/24/19 12/25/19 12/26/19 06:59 06:59 06:59 Intake Total 2357 1000 Output Total 60 Balance 2297 1000 Weight 78 kg General appearance: PRESENT: no acute distress Head exam: PRESENT: normocephalic Eye exam: PRESENT: EOMI Ear exam: PRESENT: normal external ear exam Mouth exam: PRESENT: moist Teeth exam: PRESENT: poor dentation Neck exam: PRESENT: full ROM Respiratory exam: PRESENT: clear to auscultation varsha Cardiovascular exam: PRESENT: RRR Pulses: PRESENT: normal radial pulses, normal femoral pulses Vascular exam: PRESENT: normal capillary refill GI/Abdominal exam: PRESENT: soft Rectal exam: PRESENT: deferred Extremities exam: PRESENT: full ROM Musculoskeletal exam: PRESENT: full ROM Neurological exam: PRESENT: alert, oriented to person, oriented to place Psychiatric exam: PRESENT: appropriate affect Skin exam: PRESENT: dry Results Laboratory Results: 12/25/19 07:53 12/25/19 07:53 12/24/19 12/24/19 12/24/19 17:11 17:11 17:11 WBC 10.7 H RBC 1.86 L Hgb 5.6 L Hct 16.4 L MCV 88 MCH 30.1 MCHC 34.3 RDW 16.6 H Plt Count 484 H Seg Neutrophils % 73.2 Sodium 138.5 Potassium 3.7 Chloride 106 Carbon Dioxide 27 Anion Gap 6 BUN 15 Creatinine 0.67 Est GFR ( Amer) > 60 Glucose 110 Calcium 8.7 Magnesium Total Bilirubin 0.1 L AST 14 L Alkaline Phosphatase 41 Total Protein 5.8 L Albumin 3.0 L Triglycerides Cholesterol LDL Cholesterol Direct VLDL Cholesterol HDL Cholesterol Lipase 55.8 TSH Urine Color Urine Appearance Urine pH Ur Specific Mcdonough Urine Protein Urine Glucose (UA) Urine Ketones Urine Blood Urine Nitrite Ur Leukocyte Esterase Urine WBC (Auto) Urine RBC (Auto) Blood Type A POSITIVE Antibody Screen NEGATIVE 12/25/19 12/25/19 12/25/19 03:31 07:53 07:53 WBC RBC Hgb Hct MCV MCH MCHC RDW Plt Count Seg Neutrophils % Sodium 137.9 Potassium 3.5 L Chloride 109 H Carbon Dioxide 26 Anion Gap 3 L BUN 7 Creatinine 0.67 Est GFR ( Amer) > 60 Glucose 95 Calcium 7.9 L Magnesium 1.5 L Total Bilirubin 2.1 H AST 16 L Alkaline Phosphatase 38 Total Protein 5.7 L Albumin 2.8 L Triglycerides 227 H Cholesterol 105.77 LDL Cholesterol Direct 48 VLDL Cholesterol 45.4 H HDL Cholesterol 28 L Lipase 51.5 TSH 0.59 Urine Color YELLOW Urine Appearance CLEAR Urine pH 5.0 Ur Specific Mcdonough 1.016 Urine Protein NEGATIVE Urine Glucose (UA) NEGATIVE Urine Ketones NEGATIVE Urine Blood NEGATIVE Urine Nitrite NEGATIVE Ur Leukocyte Esterase NEGATIVE Urine WBC (Auto) 0 Urine RBC (Auto) 0 Blood Type Antibody Screen 12/25/19 07:53 WBC 9.6 RBC 2.81 L Hgb 8.4 L D Hct 24.3 L MCV 86 MCH 29.7 MCHC 34.4 RDW 15.6 H Plt Count 379 Seg Neutrophils % 73.7 Sodium Potassium Chloride Carbon Dioxide Anion Gap BUN Creatinine Est GFR ( Amer) Glucose Calcium Magnesium Total Bilirubin AST Alkaline Phosphatase Total Protein Albumin Triglycerides Cholesterol LDL Cholesterol Direct VLDL Cholesterol HDL Cholesterol Lipase TSH Urine Color Urine Appearance Urine pH Ur Specific Mcdonough Urine Protein Urine Glucose (UA) Urine Ketones Urine Blood Urine Nitrite Ur Leukocyte Esterase Urine WBC (Auto) Urine RBC (Auto) Blood Type Antibody Screen Assessment & Plan - Diagnosis (1) Anemia Qualifiers: Anemia type: iron deficiency Iron deficiency anemia type: chronic blood loss Qualified Code(s): D50.0 - Iron deficiency anemia secondary to blood loss (chronic) - Plan Summary Plan Summary: pt readmitted for gastric ulcer bleed path report from last endoscopy last wk still pending pt required 3 units of prbc hct this am 8.3 case disccussed with Don Day will repeat hct in 4-6 hrs and if stable will cont to observer on carafate and protonix if conts to bleed, will require rescope and poss surgery.
--- NOTE | 2019-12-25 12:22 | PDOC PROGRESS REPORT ---
Subjective Progress Note for:: 12/25/19 Reason For Visit: GI BLEED 12/25/2019 She was admitted with a low hemoglobin, 5.6, a recent large gastric ulcer bleed Physical Exam Vital Signs: Temp Pulse Resp BP Pulse Ox 98.0 F 73 18 91/53 L 99 12/25/19 08:56 12/25/19 08:56 12/25/19 08:56 12/25/19 08:56 12/25/19 08:56 Intake & Output 12/24/19 12/25/19 12/26/19 06:59 06:59 06:59 Intake Total 2357 1000 Output Total 60 Balance 2297 1000 Weight 78 kg General appearance: PRESENT: no acute distress Respiratory exam: PRESENT: clear to auscultation varsha. ABSENT: rales, rhonchi, wheezes Cardiovascular exam: PRESENT: RRR. ABSENT: diastolic murmur, rubs, systolic murmur GI/Abdominal exam: PRESENT: soft Neurological exam: PRESENT: alert, awake, oriented to person, oriented to place, oriented to time, oriented to situation, CN II-XII grossly intact. ABSENT: motor sensory deficit Psychiatric exam: PRESENT: appropriate affect, normal mood. ABSENT: homicidal ideation, suicidal ideation Results Laboratory Results: 12/25/19 07:53 12/25/19 07:53 12/24/19 12/24/19 12/24/19 17:11 17:11 17:11 WBC 10.7 H RBC 1.86 L Hgb 5.6 L Hct 16.4 L MCV 88 MCH 30.1 MCHC 34.3 RDW 16.6 H Plt Count 484 H Seg Neutrophils % 73.2 Sodium 138.5 Potassium 3.7 Chloride 106 Carbon Dioxide 27 Anion Gap 6 BUN 15 Creatinine 0.67 Est GFR ( Amer) > 60 Glucose 110 Calcium 8.7 Magnesium Total Bilirubin 0.1 L AST 14 L Alkaline Phosphatase 41 Total Protein 5.8 L Albumin 3.0 L Triglycerides Cholesterol LDL Cholesterol Direct VLDL Cholesterol HDL Cholesterol Lipase 55.8 TSH Urine Color Urine Appearance Urine pH Ur Specific [place] Urine Protein Urine Glucose (UA) Urine Ketones Urine Blood Urine Nitrite Ur Leukocyte Esterase Urine WBC (Auto) Urine RBC (Auto) Blood Type A POSITIVE Antibody Screen NEGATIVE 12/25/19 12/25/19 12/25/19 03:31 07:53 07:53 WBC RBC Hgb Hct MCV MCH MCHC RDW Plt Count Seg Neutrophils % Sodium 137.9 Potassium 3.5 L Chloride 109 H Carbon Dioxide 26 Anion Gap 3 L BUN 7 Creatinine 0.67 Est GFR ( Amer) > 60 Glucose 95 Calcium 7.9 L Magnesium 1.5 L Total Bilirubin 2.1 H AST 16 L Alkaline Phosphatase 38 Total Protein 5.7 L Albumin 2.8 L Triglycerides 227 H Cholesterol 105.77 LDL Cholesterol Direct 48 VLDL Cholesterol 45.4 H HDL Cholesterol 28 L Lipase 51.5 TSH 0.59 Urine Color YELLOW Urine Appearance CLEAR Urine pH 5.0 Ur Specific [place] 1.016 Urine Protein NEGATIVE Urine Glucose (UA) NEGATIVE Urine Ketones NEGATIVE Urine Blood NEGATIVE Urine Nitrite NEGATIVE Ur Leukocyte Esterase NEGATIVE Urine WBC (Auto) 0 Urine RBC (Auto) 0 Blood Type Antibody Screen 12/25/19 07:53 WBC 9.6 RBC 2.81 L Hgb 8.4 L D Hct 24.3 L MCV 86 MCH 29.7 MCHC 34.4 RDW 15.6 H Plt Count 379 Seg Neutrophils % 73.7 Sodium Potassium Chloride Carbon Dioxide Anion Gap BUN Creatinine Est GFR ( Amer) Glucose Calcium Magnesium Total Bilirubin AST Alkaline Phosphatase Total Protein Albumin Triglycerides Cholesterol LDL Cholesterol Direct VLDL Cholesterol HDL Cholesterol Lipase TSH Urine Color Urine Appearance Urine pH Ur Specific [place] Urine Protein Urine Glucose (UA) Urine Ketones Urine Blood Urine Nitrite Ur Leukocyte Esterase Urine WBC (Auto) Urine RBC (Auto) Blood Type Antibody Screen Assessment and Plan - Diagnosis (1) Anemia Qualifiers: Anemia type: iron deficiency Iron deficiency anemia type: chronic blood loss Qualified Code(s): D50.0 - Iron deficiency anemia secondary to blood loss (chronic) Is this a current diagnosis for this admission?: Yes (2) DNR (do not resuscitate) Is this a current diagnosis for this admission?: Yes (3) Acute upper GI hemorrhage Is this a current diagnosis for this admission?: Yes (4) Anemia due to blood loss, acute Is this a current diagnosis for this admission?: Yes (5) Gastric ulcer Qualifiers: Gastric ulcer chronicity: unspecified ulcer chronicity Gastric ulcer complication status: unspecified whether hemorrhage or perforation present Qualified Code(s): K25.9 - Gastric ulcer, unspecified as acute or chronic, without hemorrhage or perforation Is this a current diagnosis for this admission?: Yes - Plan Summary Summary: 12/25/2019 Patient was discharged from the hospital on 12/17, following endoscopy which revealed a moderate size gastric ulcer. Biopsies are still pending concerning possible lymphoma. Patient was now admitted with a hemoglobin of 5.6 and following 3 units of packed red cells, and early this morning at 0800 his hemoglobin had come up to 8.4. Repeat hemoglobin today at 1500 hrs.. If Patient continues to show signs of bleeding, surgery will make a decision concerning best course of intervention. This morning at 0600 the blood pressure was 112/60 and then 2 hours later is 91/50. Per review of the chart patient has been running a lower than normal blo od pressure. Recent blood pressure shows the systolic to be up now to 108 therefore fluids were cut back to KVO. Patient's oxygen flow rate is 2 L nasal cannula. - Time Time Spent with patient: 25-34 minutes
[2019-12-25 14:57] LABS: ABSOLUTE BASOPHILS # (AUTO) 0.1 10^3/uL (0.0-0.2); ABSOLUTE EOSINOPHILS # (AUTO) 0.2 10^3/uL (0.0-0.6); ABSOLUTE LYMPHOCYTES (AUTO) 1.5 10^3/uL (0.5-4.7); ABSOLUTE MONOCYTES (AUTO) 0.7 10^3/uL (0.1-1.4); ABSOLUTE NEUT (AUTO) 6.1 10^3/uL (1.7-8.2); EOSINOPHILS % (AUTO) 1.9 % (0-6); HEMATOCRIT 22.8 % (37.9-51.0); LYMPHOCYTES % (AUTO) 17.6 % (13-45); MEAN CORPUSCULAR HGB CONC 35.1 g/dL (32.0-36.0); MEAN CORPUSCULAR VOLUME 86 fl (80-97); PLATELET COUNT 366 10^3/uL (150-450); RED BLOOD COUNT 2.67 10^6/uL (4.35-5.55); RED CELL DISTRIBUTION WIDTH 15.3 % (11.5-14.0); SEGMENTED NEUTROPHILS % (AUTO) 71.5 % (42-78); TOTAL CELLS COUNTED % (AUTO) 100 %; WHITE BLOOD COUNT 8.5 10^3/uL (4.0-10.5)
[2019-12-25] MEDS: NORMAL SALINE 1000 ML 1,000 ML IV PRN (22:23)
[2019-12-26 07:40] LABS: ABSOLUTE BASOPHILS # (AUTO) 0.1 10^3/uL (0.0-0.2); ABSOLUTE EOSINOPHILS # (AUTO) 0.2 10^3/uL (0.0-0.6); ABSOLUTE LYMPHOCYTES (AUTO) 1.6 10^3/uL (0.5-4.7); ABSOLUTE MONOCYTES (AUTO) 0.6 10^3/uL (0.1-1.4); ABSOLUTE NEUT (AUTO) 6.1 10^3/uL (1.7-8.2); BASOPHILS % (AUTO) 0.7 % (0-2); HEMATOCRIT 24.2 % (37.9-51.0); HEMOGLOBIN 8.2 g/dL (13.5-17.0); LYMPHOCYTES % (AUTO) 18.4 % (13-45); MEAN CORPUSCULAR HEMOGLOBIN 29.2 pg (27.0-33.4); MEAN CORPUSCULAR HGB CONC 33.9 g/dL (32.0-36.0); MEAN CORPUSCULAR VOLUME 86 fl (80-97); MONOCYTES % (AUTO) 7.4 % (3-13); PLATELET COUNT 412 10^3/uL (150-450); RED BLOOD COUNT 2.81 10^6/uL (4.35-5.55); RED CELL DISTRIBUTION WIDTH 15.3 % (11.5-14.0); SEGMENTED NEUTROPHILS % (AUTO) 71.5 % (42-78); TOTAL CELLS COUNTED % (AUTO) 100 %; WHITE BLOOD COUNT 8.5 10^3/uL (4.0-10.5)
[2019-12-26 07:47] LABS: INTERNATIONAL RATION (INR) 1.19; PARTIAL THROMBOPLASTIN TIME 31.9 SEC (23.5-35.8); PROTHROMBIN TIME 15.2 SEC (11.4-15.4)
[2019-12-26 07:57] LABS: BLOOD UREA NITROGEN 3 mg/dL (7-20); CALCIUM 8.7 mg/dL (8.4-10.2); CARBON DIOXIDE 29 mmol/L (22-30); CHLORIDE 105 mmol/L (98-107); GLUCOSE 82 mg/dL (75-110); POTASSIUM 3.4 mmol/L (3.6-5.0)
[2019-12-26 08:03] LABS: ANION GAP 5 (5-19)
[2019-12-26] MEDS: PANTOPRAZOLE SODIUM 40 MG VIAL IV SCH ×2 (09:53→21:09)
[2019-12-26] MEDS: NICOTINE 21 MG/24 HR PATCH.TD24 TD SCH (09:53)
--- NOTE | 2019-12-26 11:02 | PDOC PROGRESS REPORT ---
Subjective Progress Note for:: 12/26/19 Reason For Visit: GI BLEED December 25 Patient admitted for upper GI bleed, anemia Physical Exam Vital Signs: Temp Pulse Resp BP Pulse Ox 98.1 F 65 18 108/53 L 94 12/26/19 08:07 12/26/19 08:07 12/26/19 08:07 12/26/19 08:07 12/26/19 08:07 Intake & Output 12/25/19 12/26/19 12/27/19 06:59 06:59 06:59 Intake Total 2357 1696 Output Total 60 1380 Balance 2297 316 Weight 78 kg 76.7 kg General appearance: PRESENT: no acute distress, other - No complaints Respiratory exam: PRESENT: clear to auscultation varsha. ABSENT: rales, rhonchi, wheezes Cardiovascular exam: PRESENT: RRR. ABSENT: diastolic murmur, rubs, systolic murmur GI/Abdominal exam: PRESENT: soft, other - No tenderness Neurological exam: PRESENT: alert, awake, oriented to person, oriented to place, oriented to time, oriented to situation, CN II-XII grossly intact. ABSENT: motor sensory deficit Psychiatric exam: PRESENT: appropriate affect, normal mood. ABSENT: homicidal ideation, suicidal ideation Results Laboratory Results: 12/26/19 07:23 12/26/19 07:23 12/25/19 12/26/19 12/26/19 14:50 07:23 07:23 WBC 8.5 8.5 RBC 2.67 L 2.81 L Hgb 8.0 L 8.2 L Hct 22.8 L 24.2 L MCV 86 86 MCH 30.0 29.2 MCHC 35.1 33.9 RDW 15.3 H 15.3 H Plt Count 366 412 Seg Neutrophils % 71.5 71.5 Sodium 138.6 Potassium 3.4 L Chloride 105 Carbon Dioxide 29 Anion Gap 5 BUN 3 L Creatinine 0.66 Est GFR ( Amer) > 60 Glucose 82 Calcium 8.7 Assessment and Plan - Diagnosis (1) Anemia Qualifiers: Anemia type: iron deficiency Iron deficiency anemia type: chronic blood loss Qualified Code(s): D50.0 - Iron deficiency anemia secondary to blood loss (chronic) Is this a current diagnosis for this admission?: Yes (2) DNR (do not resuscitate) Is this a current diagnosis for this admission?: Yes (3) Acute upper GI hemorrhage Is this a current diagnosis for this admission?: Yes (4) Anemia due to blood loss, acute Is this a current diagnosis for this admission?: Yes (5) Gastric ulcer Qualifiers: Gastric ulcer chronicity: unspecified ulcer chronicity Gastric ulcer complication status: unspecified whether hemorrhage or perforation present Qualified Code(s): K25.9 - Gastric ulcer, unspecified as acute or chronic, without hemorrhage or perforation Is this a current diagnosis for this admission?: Yes - Plan Summary Summary: 12/25/2019 Patient was discharged from the hospital on 12/17, following endoscopy which revealed a moderate size gastric ulcer. Biopsies are still pending concerning possible lymphoma. Patient was now admitted with a hemoglobin of 5.6 and following 3 units of packed red cells, and early this morning at 0800 his hemoglobin had come up to 8.4. Repeat hemoglobin today at 1500 hrs.. If Patient continues to show signs of bleeding, surgery will make a decision concerning best course of intervention. This morning at 0600 the blood pressure was 112/60 and then 2 hours later is 91/50. Per review of the chart patient has been running a lower than normal blood pressure. Recent blood pressure shows the systolic to be up now to 108 therefore fluids we re cut back to KVO. Patient's oxygen flow rate is 2 L nasal cannula. 12/26/2019 Vital signs are stable temperature 98.1 pulse 64 blood pressure 114/51 O2 sat 99% on 2 L Hemoglobin yesterday was 8.0 this morning it is 8.2 Point to recheck his hemoglobin today at 1600 hrs. and then again tomorrow mo rning at 0600. If patient does not drop his hemoglobin , I plan to discharge him tomorrow Patient has no abdominal pain. Patient is eating a regular diet. Patient is hemodynamically stable.. Patient's pathology from 323 shows a "lymphoid proliferation". I will have patient follow-up as an outpatient concerning this. Patient does have elevated triglycerides, but cholesterols normal. I will start patient on Lipitor 40 mg nightly and prescribe this at home as well Have explained this to the patient and he has no questions At this time it does not appear as though patient will require surgery although certainly this could change in the future - Time Time Spent with patient: 25-34 minutes
--- NOTE | 2019-12-26 11:27 | PDOC PROGRESS REPORT ---
Subjective Progress Note for:: 12/26/19 Subjective:: This is a 64-year-old male with a history of recent upper GI bleeding. He is found to have a large ulcer in the stomach. The patient had hematemesis the day prior to his admission. Since admission, he has had several melanotic stools but no further hematemesis. Overnight, he denies melena or hematochezia. He also denies chest pain, shortness of breath, fevers, chills, nausea, vomiting, abdominal pain, dizziness, headache. Reason For Visit: GI BLEED Physical Exam Vital Signs: Temp Pulse Resp BP Pulse Ox 98.1 F 65 18 108/53 L 94 12/26/19 08:07 12/26/19 08:07 12/26/19 08:07 12/26/19 08:07 12/26/19 08:07 Intake & Output 12/25/19 12/26/19 12/27/19 06:59 06:59 06:59 Intake Total 2357 1696 Output Total 60 1380 Balance 2297 316 Weight 78 kg 76.7 kg General appearance: PRESENT: no acute distress, cooperative Head exam: PRESENT: atraumatic, normocephalic Eye exam: PRESENT: EOMI, PERRLA. ABSENT: scleral icterus Mouth exam: PRESENT: moist, neck supple Neck exam: ABSENT: meningismus, tenderness, thyromegaly, tracheal deviation Respiratory exam: PRESENT: unlabored. ABSENT: tachypnea, wheezes Cardiovascular exam: ABSENT: tachycardia GI/Abdominal exam: PRESENT: soft. ABSENT: distended, tenderness Rectal exam: PRESENT: deferred Extremities exam: ABSENT: clubbing Neurological exam: PRESENT: alert, awake, oriented to person, oriented to place, oriented to time, oriented to situation Psychiatric exam: ABSENT: agitated, anxious, depressed Focused psych exam: ABSENT: delusional Skin exam: ABSENT: cyanosis, erythema, jaundice Results Laboratory Results: 12/26/19 07:23 12/26/19 07:23 12/25/19 12/26/19 12/26/19 14:50 07:23 07:23 WBC 8.5 8.5 RBC 2.67 L 2.81 L Hgb 8.0 L 8.2 L Hct 22.8 L 24.2 L MCV 86 86 MCH 30.0 29.2 MCHC 35.1 33.9 RDW 15.3 H 15.3 H Plt Count 366 412 Seg Neutrophils % 71.5 71.5 Sodium 138.6 Potassium 3.4 L Chloride 105 Carbon Dioxide 29 Anion Gap 5 BUN 3 L Creatinine 0.66 Est GFR ( Amer) > 60 Glucose 82 Calcium 8.7 Assessment & Plan - Diagnosis (1) Acute upper GI hemorrhage Is this a current diagnosis for this admission?: Yes (2) Anemia due to blood loss, acute Is this a current diagnosis for this admission?: Yes (3) Gastric ulcer Qualifiers: Gastric ulcer chronicity: unspecified ulcer chronicity Gastric ulcer complication status: unspecified whether hemorrhage or perforation present Qualified Code(s): K25.9 - Gastric ulcer, unspecified as acute or chronic, without hemorrhage or perforation Is this a current diagnosis for this admission?: Yes - Plan Summary Plan Summary: 64-year-old male status post transfusion. The patient appears to have a stable hemoglobin today. He has no further melena or hematochezia. Continue with observation. If the patient rebleeds, he may require endoscopic and/or operative intervention. Continue Carafate and PPI. Awaiting final pathology from previous upper endoscopy.
[2019-12-26 16:17] LABS: ABSOLUTE BASOPHILS # (AUTO) 0.1 10^3/uL (0.0-0.2); ABSOLUTE EOSINOPHILS # (AUTO) 0.2 10^3/uL (0.0-0.6); ABSOLUTE LYMPHOCYTES (AUTO) 1.3 10^3/uL (0.5-4.7); ABSOLUTE MONOCYTES (AUTO) 0.5 10^3/uL (0.1-1.4); ABSOLUTE NEUT (AUTO) 5.5 10^3/uL (1.7-8.2); BASOPHILS % (AUTO) 0.8 % (0-2); HEMOGLOBIN 8.3 g/dL (13.5-17.0); LYMPHOCYTES % (AUTO) 16.8 % (13-45); MEAN CORPUSCULAR HEMOGLOBIN 29.8 pg (27.0-33.4); MEAN CORPUSCULAR HGB CONC 34.4 g/dL (32.0-36.0); MEAN CORPUSCULAR VOLUME 87 fl (80-97); MONOCYTES % (AUTO) 6.9 % (3-13); PLATELET COUNT 437 10^3/uL (150-450); RED BLOOD COUNT 2.78 10^6/uL (4.35-5.55); RED CELL DISTRIBUTION WIDTH 15.6 % (11.5-14.0); SEGMENTED NEUTROPHILS % (AUTO) 73.5 % (42-78); TOTAL CELLS COUNTED % (AUTO) 100 %; WHITE BLOOD COUNT 7.5 10^3/uL (4.0-10.5)
[2019-12-26] MEDS: NORMAL SALINE 1000 ML 1,000 ML IV PRN (21:10)
[2019-12-26] MEDS ORDERED: ATORVASTATIN CALCIUM 40 MG TABLET PO SCH (22:00)
[2019-12-27 05:07] LABS: ABSOLUTE BASOPHILS # (AUTO) 0.1 10^3/uL (0.0-0.2); ABSOLUTE EOSINOPHILS # (AUTO) 0.2 10^3/uL (0.0-0.6); ABSOLUTE LYMPHOCYTES (AUTO) 1.3 10^3/uL (0.5-4.7); ABSOLUTE MONOCYTES (AUTO) 0.6 10^3/uL (0.1-1.4); ABSOLUTE NEUT (AUTO) 5.4 10^3/uL (1.7-8.2); BASOPHILS % (AUTO) 0.8 % (0-2); EOSINOPHILS % (AUTO) 2.6 % (0-6); HEMATOCRIT 23.1 % (37.9-51.0); LYMPHOCYTES % (AUTO) 16.8 % (13-45); MEAN CORPUSCULAR HEMOGLOBIN 29.9 pg (27.0-33.4); MEAN CORPUSCULAR HGB CONC 34.8 g/dL (32.0-36.0); MEAN CORPUSCULAR VOLUME 86 fl (80-97); MONOCYTES % (AUTO) 7.4 % (3-13); PLATELET COUNT 432 10^3/uL (150-450); RED BLOOD COUNT 2.69 10^6/uL (4.35-5.55); RED CELL DISTRIBUTION WIDTH 15.5 % (11.5-14.0); SEGMENTED NEUTROPHILS % (AUTO) 72.4 % (42-78); TOTAL CELLS COUNTED % (AUTO) 100 %; WHITE BLOOD COUNT 7.5 10^3/uL (4.0-10.5)
[2019-12-27] MEDS: NICOTINE 21 MG/24 HR PATCH.TD24 TD SCH (09:17)
[2019-12-27] MEDS: PANTOPRAZOLE SODIUM 40 MG VIAL IV SCH (09:17)
[2019-12-27 11:36] VITALS: BP 112/60
--- NOTE | 2019-12-27 12:09 | PDOC PROGRESS REPORT ---
Subjective Progress Note for:: 12/27/19 Subjective:: This is a 64-year-old male with a history of recent upper GI bleeding. He is found to have a large ulcer in the stomach. The patient had hematemesis the day prior to his admission. Since admission, he has had several melanotic stools but no further hematemesis. Overnight, he denies melena or hematochezia. He also denies chest pain, shortness of breath, fevers, chills, nausea, vomiting, abdominal pain, dizziness, headache. Reason For Visit: GI BLEED Physical Exam Vital Signs: Temp Pulse Resp BP Pulse Ox 97.9 F 78 18 112/60 98 12/27/19 11:32 12/27/19 11:32 12/27/19 11:32 12/27/19 11:32 12/27/19 11:32 Intake & Output 12/26/19 12/27/19 12/28/19 06:59 06:59 06:59 Intake Total 1696 1584 Output Total 1380 1900 Balance 316 -316 Weight 76.7 kg 78 kg General appearance: PRESENT: no acute distress Eye exam: PRESENT: EOMI, PERRLA. ABSENT: scleral icterus Mouth exam: PRESENT: moist, neck supple Neck exam: ABSENT: meningismus, tenderness, thyromegaly, tracheal deviation Respiratory exam: ABSENT: chest wall tenderness Cardiovascular exam: ABSENT: tachycardia GI/Abdominal exam: PRESENT: soft. ABSENT: distended, guarding, tenderness Rectal exam: PRESENT: deferred Extremities exam: ABSENT: clubbing Musculoskeletal exam: ABSENT: deformity Neurological exam: PRESENT: alert, awake, oriented to person, oriented to place Psychiatric exam: ABSENT: agitated, anxious, depressed Focused psych exam: ABSENT: delusional Skin exam: ABSENT: cyanosis, erythema, jaundice Results Laboratory Results: 12/27/19 04:18 12/26/19 07:23 12/26/19 12/27/19 16:05 04:18 WBC 7.5 7.5 RBC 2.78 L 2.69 L Hgb 8.3 L 8.0 L Hct 24.0 L 23.1 L MCV 87 86 MCH 29.8 29.9 MCHC 34.4 34.8 RDW 15.6 H 15.5 H Plt Count 437 432 Seg Neutrophils % 73.5 72.4 Assessment & Plan - Diagnosis (1) Acute upper GI hemorrhage Is this a current diagnosis for this admission?: Yes (2) Anemia due to blood loss, acute Is this a current diagnosis for this admission?: Yes (3) Gastric ulcer Qualifiers: Gastric ulcer chronicity: unspecified ulcer chronicity Gastric ulcer complication status: unspecified whether hemorrhage or perforation present Qualified Code(s): K25.9 - Gastric ulcer, unspecified as acute or chronic, without hemorrhage or perforation Is this a current diagnosis for this admission?: Yes - Plan Summary Plan Summary: 64-year-old male status post transfusion for upper GI bleeding. The patient appears to have a stable hemoglobin again today. He has no further melena or hematochezia. Continue Carafate and PPI. Will need followup with PCP for repeat hemoglobin. Will need followup with surgery for repeat upper endoscopy in 6-8 weeks. Awaiting final pathology from previous upper endoscopy.
--- NOTE | 2019-12-27 18:48 | PDOC DISCHARGE SUMMARY ---
Impression - Admit/DC Date/PCP Admission Date/Primary Care Provider: 12/24/19 18:25 [facility] Discharge Date: 12/27/19 - Discharge Diagnosis (1) Anemia Is this a current diagnosis for this admission?: Yes (2) DNR (do not resuscitate) Is this a current diagnosis for this admission?: Yes (3) Acute upper GI hemorrhage Is this a current diagnosis for this admission?: Yes (4) Anemia due to blood loss, acute Is this a current diagnosis for this admission?: Yes (5) Gastric ulcer Is this a current diagnosis for this admission?: Yes - Assessment Summary: 12/25/2019 Patient was discharged from the hospital on 12/17, following endoscopy which revealed a moderate size gastric ulcer. Biopsies are still pending concerning possible lymphoma. Patient was now admitted with a hemoglobin of 5.6 and following 3 units of packed red cells, and early this morning at 0800 his hemoglobin had come up to 8.4. Repeat hemoglobin today at 1500 hrs.. If Patient continues to show signs of bleeding, surgery will make a decision concerning best course of intervention. This morning at 0600 the blood pressure was 112/60 and then 2 hours later is 91/50. Per review of the chart patient has been running a lower than normal blood pressure. Recent blood pressure shows the systolic to be up now to 108 therefore fluids were cut back to KVO. Patient's oxygen flow rate is 2 L nasal cannula. 12/26/2019 Vital signs are stable temperature 98.1 pulse 64 blood pressure 114/51 O2 sat 99% on 2 L Hemoglobin yesterday was 8.0 this morning it is 8.2 Point to recheck his hemoglobin today at 1600 hrs. and then again tomorrow morning at 0600. If patient does not drop his hemoglobin , I plan to discharge him tomorrow Patient has no abdominal pain. Patient is eating a regular diet. Patient is hemodynamically stable.. Patient's pathology from 323 shows a "lymphoid proliferation". I will have patient follow-up as an outpatient concerning this. Patient does have elevated triglycerides, but cholesterols normal. I will start patient on Lipitor 40 mg nightly and prescribe this at home as well Have explained this to the patient and he has no questions At this time it does not appear as though patient will require surgery although certainly this could change in the future 12/27/2019 His hemoglobin has stabilized at 8.0 it is been stable now 3 days following transfusion with no signs of active bleeding No or bright red blood Patient was discharged home in good condition to follow-up with his primary care provider concerning his possible lymphoid proliferation in his blood counts Patient was discharged home with a prescription for Lipitor as well as nicotine patches patient already has Carafate and Prilosec at home which she is to continue Upper GI is probably from gastric ulcer bleed seen on last EGD - Additional Information Resuscitation Status: Do Not Resuscitate Discharge Diet: As Tolerated Discharge Activity: Balance Activity w/Rest Referrals: [facility] [Primary Care [facility]] - Follow up as needed (patient needs to call and schedule) Prescriptions: Atorvastatin Calcium [Lipitor 40 mg Tablet] 40 mg PO QHS 30 Days #30 tablet Nicotine [Nicoderm 21 mg/24 Hr Transderm Patch] 1 each TD DAILY 30 Days #30 patch.[email or web address] Home Medications: Hydrochlorothiazide [Hydrodiuril 25 mg Tablet] 25 mg PO DAILY 09/08/18 Albuterol Sulfate [Proair HFA Inhalation Aerosol 8.5 gm MDI] 2 puff IH Q6HP PRN 12/17/19 Ipratropium/Albuterol Sulfate [Combivent Respimat 4 gm Mdi] 1 puff IH QID 12/17/19 Ipratropium/Albuterol Sulfate [Duoneb 3 ml Ampul] 3 ml NEB RTQ6HP PRN 12/17/19 Omeprazole 40 mg PO QAM #30 capsule. 12/18/19 Sucralfate [Carafate 1 gm Tablet] 1 gm PO QID 30 Days #120 tablet 12/18/19 Atorvastatin Calcium [Lipitor 40 mg Tablet] 40 mg PO QHS 30 Days #30 tablet 12/27/19 Nicotine [Nicoderm 21 mg/24 Hr Transderm Patch] 1 each TD DAILY 30 Days #30 patch.[email or web address] 12/27/19 History of Present Illiness History of Present Illness: KWABENA OJEDA is a 64 year old male Physical Exam Vital Signs: Temp Pulse Resp BP Pulse Ox 97.9 F 78 18 112/60 98 12/27/19 11:32 12/27/19 11:32 12/27/19 11:32 12/27/19 11:32 12/27/19 11:32 Intake & Output 12/26/19 12/27/1920 06:59 06:59 06:59 Intake Total 0119 8514 Output Total 6045 4534 Balance 316 -316 Weight 76.7 kg 78 kg Results Laboratory Results: WBC 7.5 10^3/uL (4.0-10.5) 12/27/19 04:18 RBC 2.69 10^6/uL (4.35-5.55) L 12/27/19 04:18 Hgb 8.0 g/dL (13.5-17.0) L 12/27/19 04:18 Hct 23.1 % (37.9-51.0) L 12/27/19 04:18 MCV 86 fl (80-97) 12/27/19 04:18 MCH 29.9 pg (27.0-33.4) 12/27/19 04:18 MCHC 34.8 g/dL (32.0-36.0) 12/27/19 04:18 RDW 15.5 % (11.5-14.0) H 12/27/19 04:18 Plt Count 432 10^3/uL (150-450) 12/27/19 04:18 Lymph % (Auto) 16.8 % (13-45) 12/27/19 04:18 [place] % (Auto) 7.4 % (3-13) 12/27/19 04:18 Eos % (Auto) 2.6 % (0-6) 12/27/19 04:18 Baso % (Auto) 0.8 % (0-2) 12/27/19 04:18 Absolute Neuts (auto) 5.4 10^3/uL (1.7-8.2) 12/27/19 04:18 Absolute Lymphs (auto) 1.3 10^3/uL (0.5-4.7) 12/27/19 04:18 Absolute Monos (auto) 0.6 10^3/uL (0.1-1.4) 12/27/19 04:18 Absolute Eos (auto) 0.2 10^3/uL (0.0-0.6) 12/27/19 04:18 Absolute Basos (auto) 0.1 10^3/uL (0.0-0.2) 12/27/19 04:18 Seg Neutrophils % 72.4 % (42-78) 12/27/19 04:18 PT 15.2 SEC (11.4-15.4) 12/26/19 07:23 INR 1.19 12/26/19 07:23 APTT 31.9 SEC (23.5-35.8) 12/26/19 07:23 Sodium 138.6 mmol/L (137-145) 12/26/19 07:23 Potassium 3.4 mmol/L (3.6-5.0) L 12/26/19 07:23 Chloride 105 mmol/L (98-107) 12/26/19 07:23 Carbon Dioxide 29 mmol/L (22-30) 12/26/19 07:23 Anion Gap 5 (5-19) 12/26/19 07:23 BUN 3 mg/dL (7-20) L 12/26/19 07:23 Creatinine 0.66 mg/dL (0.52-1.25) 12/26/19 07:23 Est GFR ( Amer) > 60 (>60) 12/26/19 07:23 Est GFR (MDRD) Non-Af > 60 (>60) 12/26/19 07:23 Glucose 82 mg/dL (75-110) 12/26/19 07:23 Hemoglobin A1c % 5.3 % (4.7-6.0) 12/25/19 07:53 Calcium 8.7 mg/dL (8.4-10.2) 12/26/19 07:23 Magnesium 1.5 mg/dL (1.6-2.3) L 12/25/19 07:53 Total Bilirubin 2.1 mg/dL (0.2-1.3) H 12/25/19 07:53 Direct Bilirubin 0.2 mg/dL (0.0-0.4) 12/25/19 07:53 Neonat Total Bilirubin Not Reportable 12/25/19 07:53 Neonat Direct Bilirubin Not Reportable 12/25/19 07:53 Neonat Indirect Bili Not Reportable 12/25/19 07:53 AST 16 U/L (17-59) L 12/25/19 07:53 ALT 9 U/L (<50) 12/25/19 07:53 Alkaline Phosphatase 38 U/L (38-126) 12/25/19 07:53 Total Protein 5.7 g/dL (6.3-8.2) L 12/25/19 07:53 Albumin 2.8 g/dL (3.5-5.0) L 12/25/19 07:53 Triglycerides 227 mg/dL (<150) H 12/25/19 07:53 Cholesterol 105.77 mg/dL (0-200) 12/25/19 07:53 LDL Cholesterol Direct 48 mg/dL (<100) 12/25/19 07:53 VLDL Cholesterol 45.4 mg/dL (10-31) H 12/25/19 07:53 HDL Cholesterol 28 mg/dL (>40) L 12/25/19 07:53 Lipase 51.5 U/L (23-300) 12/25/19 07:53 TSH 0.59 uIU/mL (0.47-4.68) 12/25/19 07:53 Urine Color YELLOW 12/25/19 03:31 Urine Appearance CLEAR 12/25/19 03:31 Urine pH 5.0 (5.0-9.0) 12/25/19 03:31 Ur Specific [place] 1.016 12/25/19 03:31 Urine Protein NEGATIVE mg/dL (NEGATIVE) 12/25/19 03:31 Urine Glucose (UA) NEGATIVE mg/dL (NEGATIVE) 12/25/19 03:31 Urine Ketones NEGATIVE mg/dL (NEGATIVE) 12/25/19 03:31 Urine Blood NEGATIVE (NEGATIVE) 12/25/19 03:31 Urine Nitrite NEGATIVE (NEGATIVE) 12/25/19 03:31 Urine Bilirubin NEGATIVE (NEGATIVE) 12/25/19 03:31 Urine Urobilinogen NEGATIVE mg/dL (<2.0) 12/25/19 03:31 Ur Leukocyte Esterase NEGATIVE (NEGATIVE) 12/25/19 03:31 Urine WBC (Auto) 0 /HPF 12/25/19 03:31 Urine RBC (Auto) 0 /HPF 12/25/19 03:31 Urine Mucus (Auto) RARE /LPF 12/25/19 03:31 Urine Ascorbic Acid NEGATIVE (NEGATIVE) 12/25/19 03:31 Blood Type A POSITIVE 12/24/19 17:11 Antibody Screen NEGATIVE 12/24/19 17:11 Crossmatch See Detail 12/24/19 17:11 Stroke Is this a Stroke Patient?: No Acute Heart Failure - Is this a Heart Failure Patient?: No
== END 2019-12-27 13:06 | disposition home or self-care (01) | DRG 378 ==
LOC: ER 16:36 → EH 18:25 → 3W 19:40
PROVIDERS: ADMIT Internal Medicine; ATTEND Physician Assistant
PROC: 30233N1 Transfusion of Nonautologous Red Blood Cells into Peripheral Vein, Percutaneous Approach (ICD-10-PCS; principal; 2019-12-24)
DX: K25.4 Chronic or unspecified gastric ulcer with hemorrhage (principal); D62 Acute posthemorrhagic anemia; Z66 Do not resuscitate; E78.5 Hyperlipidemia, unspecified; I10 Essential (primary) hypertension; J44.9 Chronic obstructive pulmonary disease, unspecified; F32.9 Major depressive disorder, single episode, unspecified; F17.210 Nicotine dependence, cigarettes, uncomplicated; E78.00 Pure hypercholesterolemia, unspecified; Z96.642 Presence of left artificial hip joint; Z79.899 Other long term (current) drug therapy; Z88.0 Allergy status to penicillin
CPT/HCPCS: 36415; 36430; 80048; 80053; 80061; 81001; 83036; 83690; 83735; 84443; 85025; 85610; 85730; 86850; 86900; 86901; 86920; 93005; 93010; 96361; 96374; 96375; 99291; C9113; J2270; J2405; J7030; P9016

== ENCOUNTER → 2020-07-11 | Day surgery (SDC) | payer OTHER, MEDICARE ==
[~2020-07-11] MED LIST: PROPOFOL INJ 200 MG/20 ML VIAL IV ONE
[2020-07-11 09:46] VITALS: BP 144/80
--- NOTE | 2020-07-11 10:42 | Operative Report ---
Operative Report DATE OF SURGERY: 07/11/20 Operative Report: The risk, benefits and alternatives of the procedure including the risk of bleeding, perforation requiring surgery have been explained to the patient in detail and informed consent has been obtained. Patient is taken back to the endoscopy suite and placed in left, lateral decubital position. Timeout was called. Propofol medication is administered. Rectal examination is done which did not reveal any masses, tears or fissures. An Olympus videoscope was introduced into the patient's rectum. Scope was then carefully advanced all the way to the cecum. The cecum was identified by the usual anatomical landmarks including the ileocecal valve as well as the appendiceal office. Photodocumentation is obtained. Scope was then sequentially pulled back via the various segments of the colon including the ascending colon, hepatic flexure, transverse colon, splenic flexure, descending colon finding to the rectosigmoid portions of the colon. Retroflexion maneuver is performed. The risks benefits and alternatives of the procedure explained to the patient in detail and informed consent is obtained.A GIF Olympus video scope was inserted into the patient's mouth and hypopharynx, the esophagus is identified intubated and insufflated, the scope was then advanced through the esophagus stomach and duodenum, retroflexion maneuver is done, the esophagus stomach and first and second portions of the duodenum examined PREOPERATIVE DIAGNOSIS: Colorectal cancer screening. Indication for the upper endoscopy includes progressive solid food dysphagia POSTOPERATIVE DIAGNOSIS: Small sessile polyp removed via snare polypectomy on the right side of the colon. Schatzki's ring which is broken OPERATION: Colonoscopy with biopsy. EGD with biopsy SURGEON: ARYAN LUGO ANESTHESIA: LMAC TISSUE REMOVED OR ALTERED: As noted above. COMPLICATIONS: None. ESTIMATED BLOOD LOSS: None. INTRAOPERATIVE FINDINGS: As noted above. PROCEDURE: Patient tolerated the procedure well. No immediate postprocedure complications are noted. Patient is discharged in good condition. Discharge date 07/11/2020. Discharge diet: Regular. Discharge activity: Regular. 2 to 3-week follow-up to discuss findings. Patient is instructed to call the office or proceed to the emergency room should there be any further problems or questions. Wait on the pathology. Depending on the pathology of the polyp 3 to 5-year surveillance colonoscopy.
== END ==
LOC: END 08:23
PROVIDERS: ATTEND Internal Medicine Gastroenterology
DX: Z12.11 Encounter for screening for malignant neoplasm of colon (principal); R13.10 Dysphagia, unspecified; K44.9 Diaphragmatic hernia without obstruction or gangrene; K64.8 Other hemorrhoids; K52.9 Noninfective gastroenteritis and colitis, unspecified; I10 Essential (primary) hypertension; C88.4 Extranodal marginal zone B-cell lymphoma of mucosa-associated lymphoid tissue [MALT-lymphoma]; K75.9 Inflammatory liver disease, unspecified; M06.9 Rheumatoid arthritis, unspecified; E78.00 Pure hypercholesterolemia, unspecified; J45.909 Unspecified asthma, uncomplicated; Z03.818 Encounter for observation for suspected exposure to other biological agents ruled out; Z86.010 Personal history of colon polyps
CPT/HCPCS: 43239; 45380; 87635; 88305 ×2; J2704; C9803; 813